=== PATIENT | female | born 1985 | race Caucasian/White ===

== ENCOUNTER 2025-08-26 13:05 | Emergency (ER) | payer OTHER, SELFPAY ==
--- OUTSIDE RECORDS SUMMARY | 2025-08-02 07:58 | XMS_ITS | Encounter Summary ---
Author Organization [facility] Address [address] [place] [address] Care Team Providers Care Sand Cutter Name Role Phone Domingo Arora P.A.-C. Primary Care Provider Encounter Details Date Type Department Care Team (Latest Contact Info) Description 08/02/2025 7:58 AM CDT - 08/02/2025 1:39 PM CDT Hospital Encounter Department of Laboratory Medicine in [place], [place] [address] [place] [phone] Nitin Henao Jr., M.D. [address] [place] [phone] Diabetes Mellitus Gestational (HCC); Hyperlipidemia Discharge Disposition: Home or Self Care Social History Tobacco Use Types Packs/Day Years Used Date Smoking Tobacco: Never Smokeless Tobacco: Never Alcohol Use Standard Drinks/Week Comments Yes 1 (1 standard drink = 0.6 oz pur e alcohol) Only on social occasions Humiliation, Afraid, Rape, and Kick questionnair e Answer Date Recorded Within the last year, have y ou been afraid of your partner or ex-partner? No 06/28/2024 Within the last year, have y ou been humiliated or emotionally abused in other ways by your partner or ex-partner? No Within the last year, have y ou been kicked, hit, slapped, or otherwise physically hurt by your partner or ex-partner? No 06/28/2024 Within the last year, have y ou been raped or forced to have any kind of sexual activity by your partner or ex-partner? No 06/28/2024 Hunger Vital Sign Answer Date Recorded Within the past 12 months, y ou worried that your food would run out before you got the money to buy more. Never true 07/28/20 Within the past 12 months, t he food you bought just didn't last and you didn't have money to get more. Never true 07/28/2025 PRAPARE - Transportation Answer Date Re corded In the past 12 months, has l ack of transportation kept you from medical appointments or from getting medications? No 07/02 In the past 12 months, has l ack of transportation kept you from meetings, work, or from getting things needed for daily living? No 07/28/2025 [facility] Utilities Answer Date Recorded In the past 12 months has th e electric, gas, oil, or water company threatened to shut off services in your home? No 07/28/2025 Depression Answer Date Recor ded PHQ-9 Total Score (max 27) 0 04/03 Housing Stability Answer Date Recorded What is your living situation today? I have a [facility] place to live 07/28/2025 Education Answer Date Recorded What is the highest level of school you have completed or the highest degree you have received? Some college, no degree 12/03/2022 Comments No Sex and Gender Information Value Date Recorded Sex Assigned at Female 09/24/2023 10:54 AM UNDER WATER ASSISTANT Legal Sex Female 5:16 PM UNDER WATER ASSISTANT Gender Identity Female 09/24/2023 10:54 AM UNDER WATER ASSISTANT Sexual Orientation Straight 09/24/2023 10 :54 AM UNDER WATER ASSISTANT Occupation Industry Job Start Date Job End Date Not on file Not on file Not on file Not on file documented as of this encounter Medications at Time of Discharge buPROPion XL (Wellbutrin XL) 150 mg 24 hr tablet Take 1 tablet (150 mg total) by mouth every morning. 90 tablet 3 08/02/2025 naltrexone (Depade) 50 mg tablet Take 1 tablet (50 mg total) by mouth daily. 90 tablet 3 08/02/2025 08/02/2026 documented as of this encounter Plan of Treatment Upcoming Encounters Date Type Department Care Team (Late st Contact Info) Description 09/20/2025 7:30 AM UNDER WATER ASSISTANT Office Visit Department of Family Medicine, [facility], in [place], [place] [address] [facility] [place] [phone] Dominog Arora P.A.-C. [address] [place] [phone] 11/06/2025 10:15 AM UNDER WATER ASSISTANT Telemedicine Department of Sleep Medicine in [place], [place] [address] [place] [phone] Cinthya Lawler APRN, C.N.P., D.N.P., M.S.N. [address] [place] [phone] documented as of this encounter Procedures Procedure Name Priority Date/Time Associated Diagnosis Comments LIPID PANEL, S Routine 08/02/2025 8:13 AM CDT Hyperlipidemia 2 HR GLUCOSE RICHARD Routine 08/02/2025 8:13 AM CDT Diabetes Mellitus Gestational (HCC) documented in this encounter Results * (ABNORMAL) Lipid Panel (08/02/2025 8:13 AM CDT) Triglycerides 301(H) mg/dL 08/02/2025 11:34 AM CDT OWAT Comment: ----REFERENCE VALUE---- Normal: <150 mg/dL Borderline High: 150-199 mg/dL High: 200-499 mg/dL Very High: > or =500 mg/dL Cholesterol, Total 221(H) mg/dL 2024 11:34 AM CDT OWAT Comment: ----REFERENCE VALUE---- Desirable: < 200 mg/dL Borderline High: 200 - 239 mg/dL High: > or = 240 mg/dL Cholesterol, LDL, Calculated 133(H) mg/dL 08/02/2025 11:34 AM CDT OWAT Comment: ----REFERENCE VALUE---- Desirable: <100 mg/dL Above Desirable: 100-129 mg/dL Borderline High: 130-159 mg/dL High: 160-189 mg/dL Very High: >=190 mg/dL ----ADDITIONAL INFORMATION---- LDL cholesterol calculated using the Stinson/NIH equation. Cholesterol, HDL 34(L) >=50 mg/dL 08/02/20 11:34 AM CDT OWAT Cholesterol, Non-HDL, Calculated 187(H) mg/dL 08/02/2025 11:34 AM CDT OWAT Comment: ----REFERENCE VALUE---- Desirable: <130 mg/dL Above Desirable: 130-159 mg/dL Borderline High: 160-189 mg/dL High: 190-219 mg/dL Very High: > or =220 mg/dL Fasting (8 HR or more) Yes 08/02/2025 8:14 AM CDT OWAT Blood (Blood, Venous) 08/02/2025 8:13 AM CDT 08/02/2025 10:35 AM CDT us Domingo Arora P.A.-C. LAB BLOOD ADD-ON Final Result [facility] [address] [place] [address], [facility] OWAT [facility] [place] [address] [place] [address] * Glucose Tolerance, Two Hour, Non-Gestational (08/02/2025 8:13 AM CDT) Glucose Richard, Fast, Non-Gest, P 100 70 - 100 mg/dL 08/02/2025 11:44 AM CDT OWAT Glucose Richard, 2hr, Non-Gest, P 147 <200 mg/dL 08/02/2025 1:22 PM CDT OWAT Blood (Blood, Venous) 08/02/2025 8:13 AM CDT 08/02/2025 10:33 AM CDT Narrative [facility] - 08/02/2025 1:22 PM CDT Specimen Information: Specimen ID: [id number] Specimen Type: Blood Specimen Collection Start Date: 08/02/2025 8:13 AM Specimen Received Date: 08/02/2025 10:33 AM Specimen ID: [id number] Specimen Type: Blood Specimen Collection Start Date: 08/02/2025 10:16 AM Specimen Received Date: 08/02/2025 1:02 PM Nitin Henao Jr., M.D. LAB BLOOD NON ADD-ON F inal Result [facility] [address] [place] [address], [facility] OWAT [facility] in [place] [address] [place] [address] documented in this encounter Visit Diagnoses Diagnosis Diabetes Mellitus Gestational (HCC) Hyperlipidemia documented in this encounter Additional Health Concerns Assessment Noted Time PHQ-9 Depression Total Score: 0 04/03/20 25 8:00 AM CDT documented as of this encounter Care Teams Sand Cutter Relationship Specialty Start Date End Date Domingo Arora P.A.-C. [address] [place] [phone] PCP - General Family Medicine 11/23/22 documented as of this encounter
--- OUTSIDE RECORDS SUMMARY | 2025-08-02 13:00 | XMS_ITS | Encounter Summary ---
Author Organization [facility] Address [address] [place] [address] Care Team Providers Care Human Performance Technologist Name Role Phone Domingo Arora P.A.-C. Primary Care Provider Reason for Referral * Sleep Medicine (Routine) - Closed Specialty Diagnoses / Procedures Referred By Contac t Referred To Contact Diagnoses Morbid Obesity Body Mass Index 40.0-44.9 Adult (HCC) Snoring Procedures Home sleep apnea test (HSAT) Domingo Arora P.A.-C. [address] [place] [address] Phone: tel: fax: [facility] Referral ID Status Reason Start Date Expiration Date Visits Re quested Visits Authorized [id number] Closed 08/02/2025 11/02/2026 1 1 * Outpatient (Routine) - Authorized Specialty Diagnoses / Procedures Referred By Conttruong t Referred To Contact Family Medicine Domingo Arora P.A.-C. [address] [place] [address] Phone: tel: fax: [facility] Region Referral ID Status Reason Start Date Expiration Date V isits Requested Visits Authorized [id number] Authorized 08/02/2025 02/01/2027 1 1 * Outpatient (Routine) - Authorized Specialty Diagnoses / Procedures Referred By Nely worrell Referred To Contact Nutrition Diagnoses Morbid Obesity Body Mass Index 40.0-44.9 Adult (HCC) Domingo Arora P.A.-C. [address] [place] [address] Phone: tel: fax: [facility] Referral ID Status Reason Start Date Expiration Date V isits Requested Visits Authorized [id number] Authorized 08/02/2025 02/01/2027 1 1 Reason for Visit * Reason Comments Annual Exam Annual, weight loss Encounter Details Date Type Department Care Team (Latest Contact Info) Description 08/02/2025 1:00 PM CDT Comprehensive Visit Department of Family Medicine, [facility], in [place], [place] [address] [place] [address] Domingo Arora P.A.-C. 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 No 07/28/2025 [facility] Utilities Answer Date Recorded In the past 12 months has e electric, gas, oil, or water company threatened to shut off services in your home? No 07/28/2025 Depression Answer Date Recor ded PHQ-9 Total Score (max 27) 0 04/03 Housing Stability Answer Date Recorded What is your living situation today? I have a [facility] place to live 07/28/2025 Education Answer Date Recorded What is the highest level of school you have completed or the highest degree you have received? Some college, no degree 12/03/2022 Comments No Sex and Gender Information Value Date Recorded Sex Assigned at Female 09/24/2023 10:54 AM BUSINESS PRACTICES SUPERVISOR Legal Sex Female 5:16 PM BUSINESS PRACTICES SUPERVISOR Gender Identity Female 09/24/2023 10:54 AM BUSINESS PRACTICES SUPERVISOR Sexual Orientation Straight 09/24/2023 10 :54 AM BUSINESS PRACTICES SUPERVISOR Occupation Industry Job Start Date Job End Date Not on file Not on file Not on file Not on file documented as of this encounter Last Filed Vital Signs Vital Sign Reading Time Taken Comments Blood Pressure 122/83 08/02/2025 12:42 PM CDT Pulse 94 08/02/2025 12:42 PM CDT Temperature 35.7 C (96.3 F) 08/02/2025 12:42 PM CDT Respiratory Rate 20 08/02/2025 12:42 PM CDT Oxygen Saturation - - Inhaled Oxygen Concentration - - Weight 115 kg (252 lb 13.9 oz) 08/02/2025 12:42 PM CDT Height 162.2 cm (5' 3.86) 08/02/2025 12:42 PM C DT Body Mass Index 43.6 08/02/2025 12:42 PM CDT documented in this encounter H&P Notes * Domingo Arora P.A.-C. - 08/02/2025 1:00 PM CDT SUBJECTIVE CHIEF COMPLAINT / REASON FOR VISIT Pilar Barnhart is a 40 y.o. female who presents for evaluation of Annual Exam (Annual, weight loss). HISTORY OF PRESENT ILLNESS Pilar presents today for her yearly history and physical. She has a history of a abnormal Pap smearand had a LEEP procedure done about a year ago. She is due for a Pap smear again. She has been struggling with obesity she says she has gained a significant amount of weight following the delivery ofher child about a year ago. She has a history of hyperlipidemia and blood was drawn prior to this vi sit. She had a 2 hour glucose tolerance test that was normal. She does have a family history of diabetes. She also snores and has for quite some time. She is concerned about sleep apnea due to daytime drowsiness as well. Current Medications[1] Allergies[2] MEDICAL HISTORY Problem List[3] Surgical History[4] Social History[5] Family History[6] OBJECTIVE Vitals: 08/02/25 1242 BP: 122/83 BP Location: Left arm Patient Position: Sitting Cuff Size: Large Pulse: 94 Resp: 20 Temp: (!) 35.7 ??C TempSrc: Temporal Weight: 115 kg Height: 162.2 cm Body mass index is 43.6 kg/m??. PHYSICAL EXAMINATION General: Patient appears in no acute distress. ENT: TMs no erythema. Throat no erythema. Mallampati class three Neck: No lymphadenopathy. No thyroid masses. Heart: Regular rate and rhythm. No murmurs. Lungs: Clear to auscultation. Abdomen: Soft and nontender to palpation. Obese ASSESSMENT / PLAN #1 Neoplasia Cervical Squamous Low Grade Intraepithelial He is going to come back for her Pap smear when I see her back in follow up in about a month #2 Hyperlipidemia She continues to work on her diet and exercise #3 General Medical Examination Adult We had a long discussion about her obesity. We talked about some different treatment options and cutting calories am going to get her in for a nutrition management consult #4 Morbid Obesity Body Mass Index 40.0-44.9 Adult (HCC) We talked about trying a medication she is interested in GLP one but not sure if she wants to do that she would be interested in trying Contrave we talked about the risks and benefits of this but it is not covered by her insurance I am going to give her a prescription for naltrexone 50 mg and have her take 25 mg daily for a week and then increase to 50 mg I will start her on Wellbutrin 150 mg extended release. We talked about risks and benefits. If she has any questions or problems she will letus know otherwise I will see her back in a month #5 Screening Examination Diabetes Mellitus Will check a metabolic panel and a hemoglobin A1c #6 Screening Examination For Thyroid Disorder And a TSH #7 Snoring I did a home sleep apnea study. Domingo Arora P.A.-C. [1] Current Outpatient Medications Medication Sig Dispense Refill buPROPion XL (Wellbutrin XL) 150 mg 24 hr tablet Take 1 tablet (150 mg total) by mouth every morning. 90 tablet 3 naltrexone (Depade) 50 mg tablet Take 1 tablet (50 mg total) by mouth daily. 90 tablet 3 No current facility-administered medications for this visit. [2] No Known Allergies [3] Patient Active Problem List Diagnosis Hyperlipidemia Morbid Obesity Body Mass Index 40.0-44.9 Adult ([facility]) Neoplasia Cervical Squamous Low Grade Intraepithelial [4] Past Surgical History: Procedure Laterality Date TONSILLECTOMY 1989 [5] Social History Tobacco Use Smoking status: Never Smokeless tobacco: Never Vaping Use Vaping status: never used Substance Use Topics Alcohol use: Yes Alcohol/week: 1.0 standard drink of alcohol Types: 1 Standard drinks or equivalent per week Comment: Only on social occasions Drug use: Never [6] Family History Problem Relation Name Age of Onset Hypertension Father Suhail Hyperlipidemia (high cholesterol) Father Suhail Thyroid disease Father Suhail Obesity Father Suhail No Known Problems Daughter Renzo No Known Problems Daughter Portia No Known Problems Daughter Terra Coronary artery disease Paternal Grandmother Melva Hypertension Paternal Grandmother Melva Hyperlipidemia (high cholesterol) Paternal Grandmother Melva Diabetes Paternal Grandmother Melva Obesity Paternal Grandmother Melva Coronary artery disease Paternal Grandfather Yanick Stroke Paternal Grandfather Yanick Hypertension Paternal Grandfather Yanick Hyperlipidemia (high cholesterol) Paternal Grandfather Yanick Obesity Paternal Grandfather Yanick Rectal cancer Father's Sister Anahy Butler Coronary artery disease Father's Sister Windy Butler Obesity Father's Sister Windy Coronary artery disease Father's Brother Larry Butler Coronary artery disease Father's Brother Rudy Butler No Known Problems Half-Brother No Known Problems Half-Brother documented in this encounter Plan of Treatment Upcoming Encounters Date Type Department Care Team (Late st Contact Info) Description 09/20/2025 7:30 AM BUSINESS PRACTICES SUPERVISOR Office Visit Department of Family Medicine, [facility], in [address] [phone] Domingo Arora P.A.-C. [address] [place] [phone] 11/06/2025 10:15 AM BUSINESS PRACTICES SUPERVISOR Telemedicine Department of Sleep Medicine in [place], [place] [address] [place] [phone] Cinthya Lawler APRN, C.N.P., D.N.P., M.S.N. [address] [phone] Scheduled Orders Name Type Priority Associated Diagnoses Orde r Schedule Home sleep apnea test (HSAT) Sleep Center Routine Morbid Obesity Body Mass Index 40.0-44.9 Adult (HCC) Snoring Expected: 08/02/2025, Expires: 11/02/2026 Scheduled Referrals Name Type Priority Associated Diagnoses Order Schedule Nutrition - Weight management medical nutrition therapy overweight/obesity consult (clinic) Outpatient Referral Routine Morbid Obesity Body Mass Index 40.0-44.9 Adult (HCC) Expected: 08/02/2025, Expires: 11/02/2026 Family Medicine office visit (clinic) Outpatient Referral Routine Expected: 09/03/2025, Expires: 11/02/2026 documented as of this encounter Results * CBC with Differential, Blood (08/02/2025 2:00 PM CDT) Hemoglobin 13.6 11.6 - 15.0 g/dL 08/02/2025 3:26 PM CDT OWAT Hematocrit 41.0 35.5 - 44.9 % 08/02/2025 3:26 PM CDT OWAT Erythrocytes 4.98 3.92 - 5.13 x10(12)/L 08/02/2025 3:26 PM CDT OW[facility] MCV 82.3 78.2 - 97.9 fL 08/02/2025 3:26 PM CDT OWAT RBC Distrib Width 14.4 12.2 - 16.1 % 08/02/2025 3:26 PM CDT OWAT Platelet Count 239 157 - 371 x10(9)/L 08/02/2025 3:26 PM CDT OWAT Leukocytes 6.6 3.4 - 9.6 x10(9)/L 08/02/2025 3:26 PM CDT OWAT Neutrophils 3.80 1.56 - 6.45 x10(9)/L 08/02/2025 3:26 PM CDT OWAT Lymphocytes 1.94 0.95 - 3.07 x10(9)/L 08/02/2025 3:26 PM CDT OWAT Monocytes 0.60 0.26 - 0.81 x10(9)/L 08/02/2025 3:26 PM CDT OWAT Eosinophils 0.25 0.03 - 0.48 x10(9)/L 08/02/2025 3:26 PM CDT OWAT Basophils 0.05 0.01 - 0.08 x10(9)/L 08/02/2025 3:26 PM CDT OWAT Blood (Blood, Venous) 08/02/2025 2:00 PM CDT 08/02/2025 2:41 PM CDT Domingo Arora P.A.-C. LAB BLOOD ADD-ON Final Result [facility] [address] [place] [address], [place] OWAT [facility] [place] [address] [place] [address] * (ABNORMAL) Comprehensive Metabolic Panel (08/02/2025 2:00 PM CDT) Potassium, P 4.2 3.6 - 5.2 mmol/L 08/02/2025 6:14 PM CDT OWAT Sodium, P 137 135 - 145 mmol/L 08/02/2025 6:14 PM CDT OWAT Chloride, P 103 98 - 107 mmol/L 08/02/2025 6:14 PM CDT OWAT Bicarbonate, P 21(L) 22 - 29 mmol/L 08/02/2025 6:14 PM CDT OWAT Anion Gap, P 13 7 - 15 08/02/2025 6:14 PM CDT OWAT BUN (Blood Urea Nitrogen), P 13 6 - 21 mg/dL 08/02/2025 6:14 PM CDT OWAT Creatinine 0.67 0.59 - 1.04 mg/dL 08/02/2025 6:14 PM CDT OWAT Estimated GFR (eGFR) >90 >=60 mL/min/BS A 08/02/2025 6:14 PM CDT OWAT Comment: Estimated GFR calculated using the 2020 CKD_EPI creatinine equation. Calcium, Total, P 9.1 8.6 - 10.0 mg/dL 08/02/2025 6:14 PM CDT OWAT Glucose, P 105 70 - 140 mg/dL 08/02/2025 6:14 PM CDT OWAT Protein, Total, P 7.5 6.3 - 7.9 g/dL 08/02/2025 6:14 PM CDT OWAT Albumin, P 4.5 3.5 - 5.0 g/dL 08/02/2025 6:14 PM CDT OWAT Aspartate Aminotransferase (AST), P 21 8 - 43 U/L 08/02/2025 6:14 PM CDT OWAT Alkaline Phosphatase, P 86 35 - 104 U/L 08/02/2025 6:14 PM CDT OWAT Alanine Aminotransferase (ALT), P 30 7 - 45 U/L 08/02/2025 6:14 PM CDT OWAT Bilirubin, Total, P 0.4 0.0 - 1.2 mg/dL 08/02/2025 6:14 PM CDT OWAT Blood (Blood, Venous) 08/02/2025 2:00 PM CDT 08/02/2025 5:51 PM CDT us Domingo Smith.-C. LAB BLOOD ADD-ON Final Result Performing Organization Address City/[facility]/ZIP Co de Phone Number [facility] [address] [address], [facility] [place] [address] [place] [phone] * Hemoglobin A1c (08/02/2025 2:00 PM CDT) Pathologist [facility] Hemoglobin A1c, B 5.6 4.2 - 5.6 % 08/02/2025 3:23 PM CDT OWAT Blood (Blood, Venous) 08/02/2025 2:00 PM CDT 08/02/2025 2:39 PM CDT us Domingo Ramírez.A.-C. LAB BLOOD ADD-ON Final Result Performing Organization Address City/[facility]/ZIP Co de Phone Number [facility] [address] [place] [address], [facility] [place] [address] [place] [phone] * Thyroid Function [place] (08/02/2025 2:00 PM CDT) TSH, Sensitive 1.6 0.3 - 4.2 mIU/L 08/02/2025 6:16 PM CDT OWAT Blood (Blood, Venous) 08/02/2025 2:00 PM CDT 08/02/2025 5:51 PM CDT Domingo Arora P.A.-C. LAB BLOOD ADD-ON Final Result [facility] [address] [place] [address], [place] OW[address] [facility] [place] [address] [place] [address] documented in this encounter Visit Diagnoses Diagnosis Neoplasia Cervical Squamous Low Grade Intraepithelial- Primary Hyperlipidemia General Medical Examination Adult Morbid Obesity Body Mass Index 40.0-44.9 Adult (HCC) Screening Examination Diabetes Mellitus Screening Examination For Thyroid Disorder Snoring documented in this encounter Additional Health Concerns Assessment Noted Time PHQ-9 Depression Total Score: 0 04/03/20 25 8:00 AM CDT documented as of this encounter Care Teams Human Performance Technologist Relationship Specialty Start Date End Date Domingo Arora P.A.-C. [address] [place] [phone] PCP - General Family Medicine 11/23/22 documented as of this encounter
--- OUTSIDE RECORDS SUMMARY | 2025-08-02 13:40 | XMS_ITS | Encounter Summary ---
Author Organization [facility] Address [address] [place] [address] Care Team Providers Care Corrugated Box Machine Operator Name Role Phone Domingo Arora P.A.-C. Primary Care Provider Encounter Details Date Type Department Care Team (Latest Contact Info) Description 08/02/2025 1:40 PM CDT - 08/02/2025 11:59 PM CDT Hospital Encounter Department of Laboratory Medicine in [place], [place] [address] [place] [phone] Domingo Arora P.A.-C. [address] [place] [phone] Hyperlipidemia; Screening Examination Diabetes Mellitus; Screening Examination For Thyroid Disorder Discharge Disposition: Home or Self Care Social [...] things needed for daily living? No 07/28/2025 [facility] Utilities Answer Date Recorded In the past 12 months has th e [employer], gas, oil, or water company threatened to shut off services in your home? No 07/28/2025 Depression Answer Date Recor ded PHQ-9 Total Score (max 27) 0 04/03 Housing Stability Answer Date Recorded What is your living situation today? I have a [facility] place to live 07/28/2025 Education Answer Date Recorded What is the highest level of school you have completed or the highest degree you have received? Some college, no degree 12/03/2022 Comments No Sex and Gender Information Value Date Recorded Sex Assigned at Female 09/24/2023 10:54 AM ASSISTANT SPA DIRECTOR Legal Sex Female 5:16 PM ASSISTANT SPA DIRECTOR Gender Identity Female 09/24/2023 10:54 AM ASSISTANT SPA DIRECTOR Sexual Orientation Straight 09/24/2023 10 :54 AM ASSISTANT SPA DIRECTOR Occupation Industry Job Start Date Job End [...] st Contact Info) Description 09/20/2025 7:30 AM ASSISTANT SPA DIRECTOR Office Visit Department of Family Medicine, [facility], in [place], [place] [address] [facility] [phone] Domingo Arora P.A.-C. 300 [facility] [place] [phone] 11/06/2025 10:15 AM ASSISTANT SPA DIRECTOR Telemedicine Department of Sleep Medicine in [place], [place] [address] [place] [phone] Cinthya Lawler APRN, C.N.P., D.N.P., M.S.N. [address] [place] [phone] documented as of this encounter Procedures Procedure Name Priority Date/Time Associated Diagnosis Comments THYROID FUNCTION CASCADE, S Routine 08/02/2025 2:00 PM CDT Hyperlipidemia Screening Examination Diabetes Mellitus Screening Examination For Thyroid Disorder CBC WITH DIFFERENTIAL, B Routine 08/02/2025 2:00 PM CDT Hyperlipidemia Screening Examination Diabetes Mellitus Screening Examination For Thyroid Disorder HEMOGLOBIN A1C, B Routine 08/02/2025 2:0 0 PM CDT Hyperlipidemia Screening Examination Diabetes Mellitus Screening Examination For Thyroid Disorder COMPREHENSIVE METABOLIC PANEL, S/P Routine 08/02/2025 2:00 PM CDT Hyperlipidemia Screening Examination Diabetes Mellitus Screening Examination For Thyroid Disorder documented in this encounter Results * CBC with Differential, [...] 2:00 PM CDT 08/02/2025 2:41 PM CDT us Domingo Arora P.A.-C. LAB BLOOD ADD-ON Final Result [facility] [address] [place] [address], [facility] OWAT [facility] [place] [address] [place] [address] * (ABNORMAL) Comprehensive Metabolic Panel (08/02/2025 2:00 PM CDT) Pathologist [facility] Potassium, P 4.2 3.6 - 5.2 mmol/L [...] CDT 08/02/2025 5:51 PM CDT us Domingo L Roethler P.A.-C. LAB BLOOD ADD-ON Final Result [facility] [address] [place] [address], [place] OWAT [facility] [place] [address] [place] [address] * Hemoglobin A1c (08/02/2025 2:00 PM CDT) Hemoglobin A1c, B 5.6 4.2 - 5.6 % 08/02/2025 3:23 PM CDT OWAT Blood (Blood, Venous) 08/02/2025 2:00 PM CDT 08/02/2025 2:39 PM CDT us Domingo Arora P.A.-C. LAB BLOOD ADD-ON Final Result Performing Organization Address City/[facility]/ZIP Co de Phone Number [facility] [address] [place] [address], [place] AT [facility] [place] [address] [place] [address] * Thyroid Function [place] (08/02/2025 2:00 PM CDT) TSH, Sensitive 1.6 0.3 - 4.2 mIU/L 08/02/2025 6:16 PM CDT OWAT Blood (Blood, Venous) 08/02/2025 2:00 PM CDT 08/02/2025 5:51 PM CDT us Domingo Arora P.A.-C. LAB BLOOD ADD-ON Final Result [facility] [address] [place] [address], [place] AT [facility] [place] [address] [place] [address] documented in this encounter Visit Diagnoses Diagnosis Hyperlipidemia Screening Examination Diabetes Mellitus Screening Examination For Thyroid Disorder documented in this encounter Additional Health Concerns Assessment Noted Time PHQ-9 Depression Total Score: 0 06/04/20 25 8:00 AM CDT documented as of this encounter Care Teams Corrugated Box Machine Operator Relationship Specialty Start Date End Date Domingo Arora P.A.-C. [address] [facility] [place] [phone] PCP - General Family Medicine 11/23/22 documented as of this encounter
--- OUTSIDE RECORDS SUMMARY | 2025-08-14 13:30 | XMS_ITS | Encounter Summary ---
Author Organization [facility] Address [address] [place] [address] Care Team Providers Care Bonderizer Name Role Phone Domingo Arora P.A.-C. Primary Care Provider Reason for Visit * Outpatient (Routine) - Authorized Specialty Diagnoses / Procedures Referred By Contac t Referred To Contact Nutrition Diagnoses Morbid Obesity Body Mass Index 40.0-44.9 Adult (HCC) Domingo Arora P.A.-CWarren [address] [place] [address] Phone: tel: fax: [facility] Region Referral ID Status Reason Start Date Expiration Date V isits Requested Visits Authorized [id number] Authorized 08/02/2025 02/01/2027 1 1 Encounter Details Date Type Department Care Team (Late st Contact Info) Description 08/14/2025 1:30 PM CDT Telemedicine Department of Nutrition in [place], [place] [address] [place] [phone] Domingo Arora P.AWarren-CWarren [address] [place] [phone] Kiesha Ellison, SHANTELLN, LD [address] [place] [address] Morbid Obesity Body Mass Index 40.0-44.9 Adult (HCC) (Primary Dx) Social History Tobacco Use Types Packs/Day Years [...] money to buy more. Never true 07/28/20 25 Within the past 12 months, t he [...] things needed for daily living? No 07/28/2025 [facility] Utilities Answer Date Recorded In the past 12 months has e [employer], gas, oil, or water [employer] threatened to shut off services in your home? No 07/28/2025 Depression Answer Date Recor ded PHQ-9 Total Score (max 27) 0 04/03 Housing Stability Answer Date Recorded What is your living situation today? I have a [facility] place to live 07/28/2025 Education Answer Date Recorded What is the highest level of school you have completed or the highest degree you have received? Some college, no degree 12/03/2022 Comments No Sex and Gender Information Value Date Recorded Sex Assigned at Female 09/24/2023 10:54 AM BIT TAPPER Legal Sex Female 5:16 PM BIT TAPPER Gender Identity Female 09/24/2023 10:54 AM BIT TAPPER Sexual Orientation Straight 09/24/2023 10 :54 AM BIT TAPPER Occupation Industry Job Start Date Job End Date Not on file Not on file Not on file Not on file documented as of this encounter Progress Notes * Terra, Kiesha Marques, SHANTELLN, LD - 08/14/2025 1:30 PM CDT REASON FOR VISIT: Medical Nutrition Therapy for obesity. Referred by: Domingo Arora P.A.-C. PRESENT FOR VISIT: Patient was seen alone for today's visit. NUTRITION ASSESSMENT: Typical meal pattern/daily food intake: Breakfast: usually skips on week days, if she does eat often a pop tart or granola bar Lunch: usually eats at daycare with the kids- may occasionally bring her own lunch Supper: family meal- often a casserole, grain/starchy heavy with protein. Usually very little vegetables due to family preferences of vegetables. Beverages: water is something she reports she knows she needs to drink more of. Usually has 1 glassof milk with evening meal. Soda- usually later afternoon, one per day, cup coffee in the AM and Kuldeep energy drink in afternoon. 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 = Additional information pertinent to visit: Patient is currently in the Preparation stage of Behavior Change. She states she can't eat many fruits due to her pollen allergy. Potato, pasta and bread are more commonly consumed foods and reports portion sizes are a challenge for her. Desserts are not ahuge appeal to her, she would prefer sour foods. Pilar reports she rarely ever feels full which is a problem and as a child reports she had a fast metabolism and could eat whatever she wanted. Physical Activity: averages 10,000-15,000 steps when working. No structured physical activity Supplements/pertinent medications: per EMR, desires GLP-1 in the future Problem List[1] ANTHROPOMETRICS No weight, video visit WEIGHT HISTORY: Wt Readings from Last 6 Encounters: 08/02/25 115 kg 10/23/24 103 kg 09/18/24 102 kg 08/17/24 101 kg 07/05/24 103 kg 07/02/24 108 kg ESTIMATED NEEDS: not addressed today PERTINENT LABS: not applicable SOCIAL HISTORY: Living arrangement: Lives with family. Learning barriers: none NUTRITION DIAGNOSIS: Other (comment) (Obesity) related to skipping meals, large portion sizes, predicted inadequate fiber intake as evidenced by reported daily intake and activity regimen and desired weight loss NUTRITION INTERVENTION: Interventions: Nutrition education, Nutrition counseling Discussed medical nutrition therapy management of obesity at length including energy balance and portion control, plate method, timing and consistency of meals and snacks, meal and snack examples, behavioral management and goal setting, beverages, and physical activity. Specific goals set with patient; see below. Patient verbalized understanding and agreement of plan and noted no further questions or concerns at this time. Handouts Provided: Sample meal and snack ideas MONITORING AND EVALUATION: Nutrition Indicator Indicator/Desired Outcome: Patient desired weight loss, 10-15% Patient Goal(s): 1. Will work on increasing fiber intake specifically in form of vegetables- can be fresh, canned, or frozen options. 2. Will work on ensuring you are eating 3 meals per day, doesn't need to be large meals, ideally a protein + fiber rich food (see handout for ideas) 3. Will work on drinking 1-2 ounces of water every time you do a repeated task such as going to bathroom or washing your hands then drink 1-2 ounces of water to help increase overall water intake. 4. Will try and do 10-15 minutes of resistance activity every other day at a minimum FOLLOW UP PLAN: 1. Patient is provided with RDN's contact information and encouraged to call or send message via Patient Portal with questions or concerns. 2. Encouraged patient to follow up per patient request. Virtual. Visit completed via Video. Consult conducted via real-time audio/video technology by Kiesha Ellison RDN, LD in [facility] to the patient in Patient's Home. Visit start time: 1:20 PM and end time: 2:04 PM. Total time spent with patient: 44 minutes. [1] Patient Active Problem List Diagnosis Hyperlipidemia Morbid Obesity Body Mass Index 40.0-44.9 Adult (HCC) Neoplasia Cervical Squamous Low Grade Intraepithelial documented in this encounter Plan of Treatment Upcoming Encounters Date Type Department Care Team (Late st Contact Info) Description 09/20/2025 7:30 AM BIT TAPPER Office Visit Department of Family Medicine, [facility], in [place], [place] [address] [place] [phone] Domingo Arora P.A.-C. [address] [place] [phone] 11/06/2025 10:15 AM BIT TAPPER Telemedicine Department of Sleep Medicine in [place], [place] [address] [place] [phone] Cinthya Lawler APRN, C.N.P., D.N.P., M.S.N. [address] [phone] documented as of this encounter Visit Diagnoses Diagnosis Morbid Obesity Body Mass Index 40.0-44.9 Adult (HCC)- Primary documented in this encounter Additional Health Concerns Assessment Noted Time PHQ-9 Depression Total Score: 0 04/03/20 25 8:00 AM CDT documented as of this encounter Care Teams Bonderizer Relationship Specialty Start Date End Date Domingo Arora P.A.-C. [address] [place] [phone] PCP - General Family Medicine 11/23/22 documented as of this encounter
--- OUTSIDE RECORDS SUMMARY | 2025-08-23 07:00 | XMS_ITS | Encounter Summary ---
Author Organization [facility] Address [address] [place] [address] Care Team Providers Care Regrind Mill Operator Name Role Phone Domingo Arora P.A.-C. Primary Care Provider Reason for Referral * Sleep Medicine (Routine) - Closed Specialty Diagnoses / Procedures Referred By Nely worrell Referred To Contact Diagnoses Morbid Obesity Body Mass Index 40.0-44.9 Adult (HCC) Snoring Procedures Home sleep apnea test (HSAT) Domingo Arora P.A.-C. [address] [place] [address] Phone: tel: fax: [facility] Referral ID Status Reason Start Date Expiration Date Visits Re quested Visits Authorized [id number] Closed 08/02/2025 11/02/2026 1 1 Reason for Visit * Sleep Medicine (Routine) - Closed Specialty Diagnoses / Procedures Referred By Nely worrell Referred To Contact Diagnoses Morbid Obesity Body Mass Index 40.0-44.9 Adult (HCC) Snoring Procedures Home sleep apnea test (HSAT) Domingo Arora P.A.-C. [address] [place] [address] Phone: tel: fax: [facility] Region Referral ID Status Reason Start Date Expiration Date Visits Re quested Visits Authorized [id number] Closed 08/02/2025 11/02/2026 1 1 Encounter Details Date Type Department Care Team (Latest Contact Info) Description 08/23/2025 7:00 AM CDT - 08/23/2025 11:59 PM CDT Hospital Encounter Department of Pulmonary Medicine in [place], [place] [address] [place] [address] Domingo Arora P.A.-C. [address] [place] [address] [place] [phone] Morbid Obesity Body Mass Index 40.0-44.9 Adult (HCC); Snoring Discharge Disposition: Home or Self Care Social [...] for daily living? No 07/28/2025 [facility] Utilities Answer Date Recorded In the past 12 months has th e electric, gas, oil, or water company threatened to shut off services in your home? No 07/28/2025 Depression Answer Date Recor ded PHQ-9 Total Score (max 27) 0 04/03 Housing Stability Answer Date Recorded What is your living situation today? I have a [facility] place to live 07/28/2025 Education Answer Date Recorded What is the highest level of school you have completed or the highest degree you have received? Some college, no degree 12/03/2022 Comments No Sex and Gender Information Value Date Recorded Sex Assigned at Female 09/24/2023 10:54 AM PROFESSOR OF EARLY CHILDHOOD EDUCATION Legal Sex Female 5:16 PM PROFESSOR OF EARLY CHILDHOOD EDUCATION Gender Identity Female 09/24/2023 10:54 AM PROFESSOR OF EARLY CHILDHOOD EDUCATION Sexual Orientation Straight 09/24/2023 10 :54 AM PROFESSOR OF EARLY CHILDHOOD EDUCATION Occupation Industry Job Start Date Job End [...] 08/02/2025 08/02/2026 documented as of this encounter Progress Notes * Chaitanya Sheridan, C.P.F.T. - 08/23/2025 7:00 AM CDT Home Sleep Study Watch Pat One has been mailed out [phone] [facility] 6065 Tracking # [id number] documented in this encounter Plan of Treatment Upcoming Encounters Date Type Department Care Team (Late st Contact Info) Description 09/20/2025 7:30 AM PROFESSOR OF EARLY CHILDHOOD EDUCATION Office Visit Department of Family Medicine, [facility], in [place] [address] [place] [address] Domingo Arora P.A.-C. [address] [place] [phone] 11/06/2025 10:15 AM PROFESSOR OF EARLY CHILDHOOD EDUCATION Telemedicine Department of Sleep Medicine in [place], [place] [address] [phone] Cinthya Lawler APRN, C.N.P., D.N.P., M.S.N. [address] [place] [phone] Scheduled Orders Name Type Priority Associated Diagnoses Orde r Schedule Home sleep apnea test (HSAT) Sleep Center Routine Morbid Obesity Body Mass Index 40.0-44.9 Adult (HCC) Snoring Once for 1 Occurrences starting 08/23/2025 until 08/23/2025 documented as of this encounter Visit Diagnoses Diagnosis Morbid Obesity Body Mass Index 40.0-44.9 Adult (HCC) Snoring documented in this encounter Additional Health Concerns Assessment Noted Time PHQ-9 Depression Total Score: 0 04/03/20 25 8:00 AM CDT documented as of this encounter Care Teams Regrind Mill Operator Relationship Specialty Start Date End Date Domingo Arora P.A.-C. [address] [facility] [place] [phone] PCP - General Family Medicine 11/23/22 documented as of this encounter
[2025-08-26] VITALS (43 sets, daily range): BP systolic 108–169; BP diastolic 76–106; PULSE 70–94; RESP 0–41; TEMP 37.1; O2SAT 94–99; BMI 45.7
--- OUTSIDE RECORDS SUMMARY | 2025-08-26 13:08 | XMS_ITS | Clinical Summary ---
Author Organization [facility] Address [address] [place] [address] Care Team Providers Care Microsoft Bi Architect Name Role Phone Domingo Arora P.A.-C. Primary Care Provider Source Comments Patient records contain information from all sites at [facility]. For routine questions regarding patient records, call [phone] during business hours, M-F 8:00 AM - 5:00 PM Central Time. Record requests for emergency care only can be directed to [phone] at any time.[facility] Allergies No known active allergies Medications * This document contains information received from the source organization and may not represent a complete record from that organization. naltrexone (Depade) 50 mg tablet Take 1 tablet (50 mg total) by mouth daily. 90 tablet 3 5 08/02/20 26 Active buPROPion XL (Wellbutrin XL) 150 mg 24 hr tablet Take 1 tablet (150 mg total) by mouth every morning. 90 tablet 3 5 Active ctymwxt-Ka-rtfz -FA 27 mg iron- 1 mg tablet Take 1 tablet by mouth daily. 08/02/20 25 Discontinued cholecalciferol , vitamin D3, (cholecalcifero l) 25 mcg (1,000 Unit) tablet Take 1 tablet (25 mcg total) by mouth daily. 90 tablet 3 4 08/02/20 25 Discontinued NIFEdipine XL (Procardia XL) 60 mg 24 hr tablet Take 1 tablet (60 mg total) by mouth daily. 90 tablet 1 4 08/02/20 25 Discontinued Active Problems Patient Care Coordination No te Formatting of this note migh t be different from the original. First trimester OB education completed. Pre-reg completed at [facility]. 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 Neg endocervix. Repeat Pap 1 year. Morbid Obesity Body Mass Index 40.0-44.9 Adult 0 12/27/2023 Hyperlipidemia 12/29/2022 Resolved Problems Problem Noted Date Diagnosed Date Resolved Date Preeclampsia Personal History Not 08/17/2024 08/02/2025 Pap Smear Examination 08/17/20242023 Care And Lactating 06/30/2024 10/23/2024 Delivery Vaginal Normal Spontaneous 06/30/2024 10/23/2024 Overview (07/01/2024): Ms. Barnhart is a 39 y.o. @ 33w4d dated by 7 week ultrasound who presented as a transfer for preeclampsia with severe features based upon sustained severe range blood pressure requiring short-acting antihypertensive treatment at [facility]. complicated by advanced maternal age, elevated 1 hr GTT, mood disorder. Her 2 most recent pregnancies have also been affected by preeclampsia with severe features requiring deliveries at 35 weeks gestation. Prior to transfer, she received her 1st dose of betamethasone and was given magnesium bolus and infusion. On admission, she denied headache, vision changes, chest pain, dyspnea, right upper quadrant epigastric pain. HELLP labs were obtained on admission and found to be within normal limits. Urine protein to creatinine ratio was obtained and 0.3. The patient was monitored for a period of time on labor and delivery with a category 1 heart rate tracing and mild range blood pressures. After this point, she was able to transfer to antepartum for ongoing inpatient observation until anticipated induction of labor at 34 weeks. The patient underwent induction of labor at 34 weeks. Her labor course was induced with vaginal cytotec and a cook catheter and augmented with artificial rupture of membranes and IV pitocin, utilizing epidural anesthesia for pain management. Complications of labor included nothing -- it was uncomplicated. She had a , delivering a liveborn female with weight of 2.15 kg. Gestational age: 34w0d. occurred: :58 PM Perineal lacerations or episiotomy: Intact Lacerations were repaired with: none -- no repair needed Contraceptive methods administered during the delivery: None Impaired Glucose Tolerance 06/28/2024 0 07/01/2024 Preeclampsia Severe 06/27/2024 10/23/2024 Elevated Glucose Tolerance Test 06/12/2024 08/02/2025 Overview (06/26/2024): 1 hour GDM screen 140 BS monitoring 06/26/2024: Fastings have been under 95 with none over 100. Highest post prandials tend to be at lunch in the 120s to 130s. Discussed limiting carbs at diet and a quick way to do that is to make sure she does not drink calories and does not eat process flour or sugar. Counseling Sterilization 01/26/2024 Overview (01/26/2024): Discussed options. Wants salpingectomy if C/S, otherwise at 8 weeks pp. Commercial insurance. Supervision Of Elderly Multi Third Trimester 12/27/2023 10/23/2024 Overview (06/26/2024): Thin Prep Pap 12/13/2023 = LGSIL with negative HPV (repeat 1 year) Final TAYO by U/S today = 08/11/2024 NIPS 01/26/24 Baby Asa 2nd trimester Anatomy us in [place], declines level 2 if NIPS normal. 03/20= 20+! 06/14 US 55% growth, nl but suboptimal 3 vessel and RVOT cardiac views. Glucola test 140, begin testing. Tdap given 05/22/24 Carrier testing negative. BPP and visits along with appropriate growth ultrasounds ordered for the rest of on 06/26/2024. With Personal Hist ory Preeclampsia Previous 12/27/2023 10/23/2024 Overview (04/11/2024): - aspirin [address] tablet; Take 1 tablet (81 mg total) by mouth daily starting at 14 weeks Obesity Body Mass Index 30-39.9 Adult 12/13/2021 08/02/2025 Atypical Squamous Cells Unde termined Significance Cervix 12/05/2020 10/04/2024 Overview (12/09/2022): 12/2020 ASCUS/HPV negative. Plan: Pap/HPV due 12/2023 Encounters * This document contains information received from the source organization and may not represent a complete record from that organization. Date Type Department Care Team Description 08/23/2025 7:00 AM CDT - 08/23/2025 11:59 PM CDT Hospital Encounter Department of Pulmonary Medicine in [place], [place] [address] [place] [id number] Domingo Arora, P.A.-C. Morbid Obesity Body Mass Index 40.0-44.9 Adult (HCC); Snoring Discharge Disposition: Home or Self Care 08/14/2025 1:30 PM CDT Telemedicine Department of Nutrition in [place], [place] [address], [place] [id number] Domingo Arora, P.A.-C. Kiesha Ellison, SHANTELLN, LD Morbid Obesity Body Mass Index 40.0-44.9 Adult (HCC) (Primary Dx) 08/05/2025 Results Follow-Up Department of Family Medicine, [facility], in [place], [place] [address] [place] [address] Domingo Arora, P.A.-C. Thyroid Function [place], Hemoglobin A1c, Comprehensive Metabolic Panel, CBC with Differential, Blood 08/02/2025 1:40 PM CDT - 08/02/2025 11:59 PM CDT Hospital Encounter Department of Laboratory Medicine in [place], [place] [address] [place] [address] Domingo Arora P.A.-CWarren Hyperlipidemia; Screening Examination Diabetes Mellitus; Screening Examination For Thyroid Disorder Discharge Disposition: Home or Self Care 08/02/2025 1:00 PM CDT Comprehensive Visit Department of Family Medicine, [facility], in [address] [address] Domingo Arora P.A.-CWarren Neoplasia Cervical Squamous Low Grade Intraepithelial (Primary Dx); Hyperlipidemia; General Medical Examination Adult; Morbid Obesity Body Mass Index 40.0-44.9 Adult (HCC); Screening Examination Diabetes Mellitus; Screening Examination For Thyroid Disorder; Snoring 08/02/2025 7:58 AM CDT - 08/02/2025 1:39 PM CDT Hospital Encounter Department of Laboratory Medicine in [address] [address] Nitin Henao Jr., M.D. Diabetes Mellitus Gestational (HCC); Hyperlipidemia Discharge Disposition: Home or Self Care 07/03/2025 Orders Only [facility] Domingo Arora P.AWarren-CWarren Hyperlipidemia from Last 3 Months Immunizations Immunization Administration Dates Next Due 4vHPV (discontinued) 10/16/2010,11/10/2007 DTaP (Infanrix, Tripedia) 02/03/1989,09/17/1988, 1987 H1N1 Inj 09/08/2009 HepA Adult 12/05/2020,10/16/2010 HepB Adult 12/05/2020,10/22/2002,11/15/2001 HepB Pediatric/Adolescent 10/22/2003 Influenza TIV (IM) 08/07/2012,10/16/2010 Influenza, Seasonal, Injectable 08/07/2012,10/16 MMR 02/17/1999,09/17/1988 OPV, Trivalent 02/03/1989,09/17/1988,1987 Td (Adult), adsorbed 02/17/1999 Tdap 05/22/2024,09/24/2016,07/06/2012 influenza vaccine quad (FLUZ ONE/FLUARIX) (6 months and older)(PF) 12/05/2020,08/18/2017,07/20/2016 Family History Medical History Relation Name Comments No Known Problems Daughter 1 Renzo No Known Problems Daughter 2 Portia No Known Problems Daughter 3 Terra Hyperlipidemia (high cholesterol) Father Suhail Hypertension Father Suhail Obesity Father Suhail Thyroid disease Father Suhail Coronary artery disease Father's Brother 1 Larry Butler Coronary artery disease Father's Brother 2 Rudy Wol f Rectal cancer Father's Sister 1 Anahy Butler Coronary artery disease Father's Sister 2 Windy Butler Obesity Father's Sister 3 Windy No Known Problems Half-Brother 1 No Known Problems Half-Brother 2 Coronary artery disease Paternal Grandfather Yanick Hyperlipidemia (high cholesterol) Paternal Grandfather Yanick Hypertension Paternal Grandfather Yanick Obesity Paternal Grandfather Yanick Stroke Paternal Grandfather Yanick Coronary artery disease Paternal Grandmother Melva Diabetes Paternal Grandmother Melva Hyperlipidemia (high cholesterol) Paternal Grandmother Melva Hypertension Paternal Grandmother Melva Obesity Paternal Grandmother Melva Relation Name Status Comments Daughter 1 Renzo Alive Daughter 2 Portia Alive Daughter 3 Terra Alive Father Suhail Alive Father's Brother 1 Larry Butler Father's Brother 2 Rudy Butler Father's Sister 1 Anahy Butler Father's Sister 2 Windy Butler Father's Sister 3 Windy Half-Brother 1 Alive Half-Brother 2 Alive Maternal Grandfather Maternal Grandmother Mother Alive Paternal Grandfather Yanick Paternal Grandmother Melva Social History Tobacco Use Types Packs/Day Years Used Date Smoking Tobacco: Never Smokeless Tobacco: Never Tobacco Cessation:Counseling Given: Not Answered Alcohol Use Standard Drinks/Week Comments Yes 1 [...] things needed for daily living? No 07/28/2025 [facility] Utilities Answer Date Recorded In the past 12 months has th e electric, gas, oil, or water company threatened to shut off services in your home? No 07/28/2025 Depression Answer Date Recor ded PHQ-9 Total Score (max 27) 0 04/03 Housing Stability Answer Date Recorded What is your living situation today? [facility] to [facility] 07/28/2025 Education Answer Date Recorded What is the highest level of school you have completed or the highest degree you have received? Some college, no degree 12/03/2022 Comments No Sex and Gender Information Value Date Recorded Sex Assigned at Female 09/24/2023 10:54 AM PROFESSOR OF RHETORIC Legal Sex Female 5:16 PM PROFESSOR OF RHETORIC Gender Identity Female 09/24/2023 10:54 AM PROFESSOR OF RHETORIC Sexual Orientation Straight 09/24/2023 10 :54 AM PROFESSOR OF RHETORIC Occupation Industry Job Start Date Job End Date Not on file Not on file Not on file Not on file Last Filed Vital Signs Vital Sign Reading Time Taken Comments Blood Pressure 122/83 08/02/2025 12:42 PM CDT Pulse 94 08/02/2025 12:42 PM CDT Temperature 35.7 C (96.3 F) 08/02/2025 12:42 PM CDT Respiratory Rate 20 08/02/2025 12:42 PM CDT Oxygen Saturation 99% 08/17/2024 8:50 AM CDT Inhaled Oxygen Concentration - - Weight 115 kg (252 lb 13.9 oz) 08/02/2025 12:42 PM CDT Height 162.2 cm (5' 3.86) 08/02/2025 12:42 PM C DT Body Mass Index 43.6 08/02/2025 12:42 PM CDT Plan of Treatment Upcoming Encounters Date Type Department Care Team (Late st Contact Info) Description 09/20/2025 7:30 AM PROFESSOR OF RHETORIC Office Visit Department of Family Medicine, [facility], in [place], [place] [address] [place] [phone] Domingo Arora P.A.-C. [address] [place] [address] 11/06/2025 10:15 AM PROFESSOR OF RHETORIC Telemedicine Department of Sleep Medicine in [place], [place] [address] [place] [address], [place] [address] Cinthya Lawler APRN, C.N.P., D.N.P., M.S.N. [address] [place] [address] Health Maintenance Due Date Last Done Comments IPV Vaccines (4 of 4 - 4-dose series) 1991 02/03/1989, 09/17/1988, 1987 HPV Vaccines (3 - 3-dose series) 01/08/2011 10/16/2010, 11/10/2007 COVID-19 Vaccine ( season) 2025 Influenza Vaccine (#1) 2025 , 08/18/2017, 07/20/2016, Additional history exists Fasting Glucose for Diabetes Screening 08/02/2026 08/02/2025, 08/02/2025, 07/01/2024, Additional history exists Lipid (Cholesterol) Screening 08/02/2026 08/02/2025, 12/13/2022 Cervical/Vaginal Cancer Screening 08/17/2029 08/17/2024, 08/17/2024, 12/13/2023, Additional history exists DTaP,Tdap,and Td Vaccines (8 - Td or Tdap) 05/22/2034 05/22/2024, 09/24/2016, 07/06/2012, Additional history exists Hepatitis A Vaccines Completed 12/05/2020, 10/16/20 10 Hepatitis B Vaccines Completed 12/05/2020, 10/22/2003, 10/22/2002, Additional history exists HIV Screening Completed 12/27/2023 Hepatitis C Screening Completed 12/27/2023 Depression Screening (Annual PHQ-2) Completed 08/02/2025, 07/28/2025 Pneumococcal vaccine (0-49 years) Aged Out No longer eligible based on patient's age to complete this topic Procedures Procedure Name Priority Date/Time Associated Diagnosis Comments CBC WITH DIFFERENTIAL, B Routine 08/02/2025 2:00 PM CDT Hyperlipidemia Screening Examination Diabetes Mellitus Screening Examination For Thyroid Disorder COMPREHENSIVE METABOLIC PANEL, S/P Routine 08/02/2025 2:00 PM CDT Hyperlipidemia Screening Examination Diabetes Mellitus Screening Examination For Thyroid Disorder HEMOGLOBIN A1C, B Routine 08/02/2025 2:0 0 PM CDT Hyperlipidemia Screening Examination Diabetes Mellitus Screening Examination For Thyroid Disorder THYROID FUNCTION CASCADE, S Routine 08/02/2025 2:00 PM CDT Hyperlipidemia Screening Examination Diabetes Mellitus Screening Examination For Thyroid Disorder LIPID PANEL, S Routine 08/02/2025 8:13 AM CDT Hyperlipidemia 2 HR GLUCOSE ESTEFANI Routine 08/02/2025 8:13 AM CDT Diabetes Mellitus Gestational (HCC) HPV WITH GENOTYPING, PCR, THINPREP Routine 08/17/2024 9:37 AM CDT HCV AB SCRN , S Routine 12/27/2023 9:30 AM PROFESSOR OF RHETORIC Examination Test With Positive Result (HCC) HIV-1/-2 AG AND AB SCRN, PLASMA Routine 12/27/2023 9:30 AM PROFESSOR OF RHETORIC Examination Test With Positive Result (HCC) from Last 3 Months or Most Recently Relevant to Health Maintenance Results * Thyroid Function [place] (08/02/2025 2:00 PM CDT) Pathologist [facility] TSH, Sensitive 1.6 0.3 - 4.2 mIU/L 08/02/2025 6:16 PM CDT OWAT Blood (Blood, Venous) 08/02/2025 2:00 PM CDT 08/02/2025 5:51 PM CDT us Domingo Arora P.A.-C. LAB BLOOD ADD-ON Final Result [facility] [address] [place] [address], [facility] in [place] [address] [place] [address] * CBC with Differential, Blood (08/02/2025 2:00 PM CDT) Pathologist [facility] Hemoglobin 13.6 11.6 - 15.0 g/dL 08/02/2025 [...] PM CDT 08/02/2025 2:41 PM CDT Domingo Fajardo-C. LAB BLOOD ADD-ON Final Result Performing Organization Address [facility]/ZIP Co de Phone Number [facility] [address], [place] [address], [facility] in [place] [address] [place] [address] * Hemoglobin A1c (08/02/2025 2:00 PM CDT) Hemoglobin A1c, B 5.6 4.2 - 5.6 % 08/02/2025 3:23 PM CDT OWAT Blood (Blood, Venous) 08/02/2025 2:00 PM CDT 08/02/2025 2:39 PM CDT Domingo PerryA.-C. LAB BLOOD ADD-ON Final Result Performing Organization Address City/[facility]/ZIP Co de Phone Number [facility] [address] [place] [address], [facility] in [place] [address] [place] [address] * (ABNORMAL) Comprehensive Metabolic Panel (08/02/2025 2:00 [...] Domingo Smith.-C. LAB BLOOD ADD-ON Final Result [facility] [address] [place] [address], [place] [facility] in [place] [address] [place] [address] * (ABNORMAL) Lipid Panel (08/02/2025 8:13 AM [...] BLOOD ADD-ON Final Result Performing Organization Address City/[facility] Co de Phone Number [facility] [address] [place] [address], [facility] [place] [address] [place] [address] * Glucose Tolerance, Two Hour, Non-Gestational (08/02/2025 8:13 AM CDT) Glucose Estefani, Fast, Non-Gest, P 100 70 - 100 mg/dL 08/02/2025 11:44 AM CDT OWAT Glucose Estefani, 2hr, Non-Gest, P 147 <200 mg/dL 08/02/2025 1:22 PM CDT OWAT Blood (Blood, Venous) 08/02/2025 8:13 AM CDT 08/02/2025 10:33 AM CDT Narrative [facility] - 08/02/2025 1:22 PM CDT Specimen Information: Specimen ID: [id number] Specimen Type: Blood Specimen Collection Start Date: 08/02/2025 8:13 AM Specimen Received Date: 08/02/2025 10:33 AM Specimen ID: [id number] Specimen Type: Blood Specimen Collection Start Date: 08/02/2025 10:16 AM Specimen Received Date: 08/02/2025 1:02 PM us Nitin Henao Jr., M.D. LAB BLOOD NON ADD-ON F inal Result [facility] [address] [place] [address], [facility] in [place] [address] [place] [address] * HPV with Genotyping, PCR, ThinPrep (08/17/2024 9:37 AM CDT) Specimen Source Cervix/Endoc ervix 08/21/2024 2:21 PM CDT [facility] HPV High Risk type 16, PCR Negative Negative 08/21/2024 2:21 PM CDT [facility] HPV High Risk type 18, PCR Negative Negative 08/21/2024 2:21 PM CDT [facility] HPV other High Risk types, PCR Negative Negative 08/21/2024 2:21 PM CDT [facility] Comment: The following Other High Risk HPV types were not detected: 31, 33, 35, 39, 45, 51, 52, 56, 58, 59, 66, and 68 This test was ordered in the context of a [facility] [employer] Cytology case; this result should be interpreted within the context of the GARAGE [employer]OR INST[employer]ER cytology report. ----ADDITIONAL INFORMATION---- Testing was performed using the justyn HPV assay ([employer] This report is intended for use in clinical monitoring and management of patients. It is not intended for use in medical-legal applications. 08/17/2024 9:37 AM CDT 08/17/2024 6:26 PM CDT us Carmen Mao M.D., Ph.D. LAB MICROBIOLOGY - GENER AL ORDERABLES Final Result Performing Organization Address [facility]/ZIP Co de Phone Number [facility] [address] [place] [address] [facility] [address] [place] [address] [place] [address] * Hepatitis C Virus Antibody Screen (12/27/2023 9:30 AM PROFESSOR OF RHETORIC) Pathologist [facility] HCV Ab Scrn , S Negative Negative 12/28/2023 8:15 AM PROFESSOR OF RHETORIC [facility] Comment:Ichuyu-rs-uysrco rat io is <1.00. Blood (Blood, Venous) 12/27/2023 9:30 AM PROFESSOR OF RHETORIC 12/28/2023 6:52 AM PROFESSOR OF RHETORIC us Delfin Macario M.D. LAB MICROBIOLOGY - BLOOD ORD ERABLES Final Result Performing Organization Address City/[facility]/ZIP Co de Phone Number [facility] [address] [place] [address] [facility] [place] [address] [place] [address] * HIV-1/-2 Ag and Ab Scrn, Plasma (12/27/2023 9:30 AM PROFESSOR OF RHETORIC) HIV Ag/Ab Scrn, P Negative Negative 12/28/2023 2:04 PM PROFESSOR OF RHETORIC [facility] Comment: Negative result does not rule out HIV infection. If exposure to HIV infection occurred <14 days ago, contact the laboratory to request addition of HIV-1/HIV-2 RNA detection , Plasma (HPP12). HIV-1 p24 Ag Scrn, P Negative Negative 12/28/2023 2:04 PM PROFESSOR OF RHETORIC [facility] Comment: Negative result does not rule out HIV infection. If exposure to HIV infection occurred <14 days ago, contact the laboratory to request addition of HIV-1/HIV-2 RNA detection , Plasma (HPP12). HIV-1 Ab Scrn, P Negative Negative 12/28/2023 2:04 PM PROFESSOR OF RHETORIC [facility] Comment: Negative result does not rule out HIV infection. If exposure to HIV infection occurred <14 days ago, contact the laboratory to request addition of HIV-1/HIV-2 RNA detection , Plasma (HPP12). HIV-2 Ab Scrn, P Negative Negative 12/28/2023 2:04 PM PROFESSOR OF RHETORIC [facility] Comment: Negative result does not rule out HIV infection. If exposure to HIV infection occurred <14 days ago, contact the laboratory to request addition of HIV-1/HIV-2 RNA detection , Plasma (HPP12). Blood (Blood, Venous) 12/27/2023 9:30 AM PROFESSOR OF RHETORIC 12/28/2023 11:55 AM PROFESSOR OF RHETORIC us Delfin Macario M.D. LAB MICROBIOLOGY - BLOOD ORD ERABLES Final Result [facility] [address] [place] [address], [facility] [address] [address] from Last 3 Months or Most Recently Relevant to Health Maintenance Insurance [id number] [place] [id number] [facility] Advance Directives For more information, please contact: [phone] * Full Code (Latest Code Status on File) Date Activated Date Inactivated Comments 06/30/2024 9:57 PM 07/03/2024 3:08 PM Question Answer Comments Full Code: Not Discussed Due to: Not medically appropriate * Full Code Date Activated Date Inactivated Comments 06/30/2024 7:33 AM 06/30/2024 9:57 PM Question Answer Comments Full Code: Not Discussed Due to: Patient not available * Full Code Date Activated Date Inactivated Comments 06/27/2024 7:35 PM 06/30/2024 7:33 AM Question Answer Comments Full Code: Discussed Care Teams [employer] Bi Architect Relationship Specialty Start Date End Date Domingo Arora P.A.-C. [address] [place], [place] [address] [address] PCP - General Family Medicine 11/23/22
--- OUTSIDE RECORDS SUMMARY | 2025-08-26 13:08 | XMS_ITS | Clinical Summary ---
Author Organization [facility] Address [address] [place] [id number] Care Team Providers Care Hazardous Materials Driver Name Role Phone Domingo Arora Primary Care Provider [phone] Allergies No known active allergies Medications cholecalciferol, Vitamin D3, (Vitamin D-3) 5,000 unit tab tabletIndication s:Vitamin D deficiency Take 1 Tablet (5,000 units) by mouth once weekly. 12 Tablet 3 10/02/2021 Active NIFEdipine ER (ADALAT CC) 60 mg extended-release tablet Take 60 mg by mouth once daily before a meal. Active Active Problems Problem Noted Date Diagnosed Date 33 weeks gestation of 06/27/2024 Preeclampsia, severe, third trimester 06/27/2024 Obesity (BMI 30-39.9) 12/13/[address] 12/19/2020 Overview (12/19/2020): Nexplanon placed in left arm 12/19/20. Due for removal in 3 years-12/19/23. Dianelys Bowden PA-C, Family Medicine.....................12/19/2020 6:06 PM ASCUS of cervix with negative high risk HPV 02/2021 Overview (01/06/2021): 12/2020 ASCUS/HPV negative. Plan: Pap/HPV due 12/2023 ISAIAS (generalized anxiety disorder) 12/07/2019 ALLERGIC RHINITIS 02/20/2007 Resolved Problems Problem Noted Date Diagnosed Date Resolved Date depression 08/22/20172020 Exogenous obesity 08/22/2017 10/01/2021 Other normal , not first 11/07/2016 12/27/2016 Spontaneous vaginal delivery 11/07/2016 12/27/2016 Status post induction of labor 11/07/2016 12/27/2016 Supervision of other normal 06/05/2012 12/24/2012 Overview (11/02/2012): Having a girl - Makayla Garrido Admitted for 24 hour urine and blood pressure monitoring - Mild pre-ecclampsia. 24 hour protein 300, uric acid 7, all other labs normal. On bedrest and Labetolol 100 mg BID. Being seen twice a week. Flu - 08/07/12 TDaP - 07/06/12 Obesity, unspecified 10/16/2010 012 Severe Preeclampsia s/p 12/27/2016 Immunizations Immunization Administration Dates Next Due DTaP 02/03/1989,09/17/1988,1987 Hepatitis A (Adult) 12/05/2020,10/16/2010 Hepatitis B (Adult) 12/05/2020,10/22/2002,2001 Human Papilloma Virus Vaccine 10/16/2010, 008 Influenza A (H1N1), Inactiva david (Age >=3 Years) 09/08/2009 Influenza, IIV3 (Age >=3 years) 08/07/2012,10/16 Influenza, IIV4 12/05/2020,08/18/2017,07/20/2016 MMR 02/17/1999,09/17/1988 Oral Polio Vaccine 02/03/1989,09/17/1988, 987 Td (Age >=7 Years) 02/17/1999 Tdap 09/24/2016,07/06/2012 Family History Medical History Relation Name Comments Thyroid Disease Father hypo Diabetes Mother Heart Disease Paternal Aunt 1 Thyroid Disease Paternal Aunt 2 hypo x2 Heart Disease Paternal Grandfather Hypertension Paternal Grandfather Stroke Paternal Grandfather Diabetes Paternal Grandmother Heart Disease Paternal Grandmother CHF Hypertension Paternal Grandmother Thyroid Disease Paternal Grandmother hypo Relation Name Status Comments Father Mother Paternal Aunt 1 Paternal Aunt 2 Paternal Grandfather Paternal Grandmother Social History Tobacco Use Types Packs/Day Years Used Date Smoking Tobacco: Never Passive Smoke Exposure: Never Smokeless Tobacco: Never Tobacco Cessation:Counseling Given: No Alcohol Use Standard Drinks/Week Comments Yes 0 (1 standard drink = 0.6 oz pur e alcohol) rare PHQ-2 Answer Date Recorded PHQ-2 TOTAL SCORE 0 12/11/2021 Social Connections Answer Date Recorded Frequency of Communication with Friends and Fami ly Not on file 10/31/2021 Financial Resource Strain Answer Date R ecorded Difficulty of Paying Living Expenses Not on file 10/31/2021 Difficulty of Paying Living Expenses Not on file 10/31/2021 Comments No Sex and Gender Information Value Date Recorded Sex Assigned at Not on file Legal Sex Female 5:46 AM TICKET AGENT Gender Identity Not on file Sexual Orientation Not on file 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 Please review and update details. 2016 35w 6d 2.32 kg (5 lb 1.8 oz) VAGINA L MALICK N Livin g 8 9 Last Filed Vital Signs Vital Sign Reading Time Taken Comments Blood Pressure 115/72 09/26/2024 2:00 PM TICKET AGENT Pulse 89 09/26/2024 2:00 PM TICKET AGENT Temperature 36.4 C (97.6 F) 09/26/2024 1:16 PM TICKET AGENT Respiratory Rate 16 09/26/2024 2:00 PM TICKET AGENT Oxygen Saturation 98% 09/26/2024 2:00 PM TICKET AGENT Inhaled Oxygen Concentration - - Weight 102.4 kg (225 lb 11.2 oz) 09/26/2024 9:51 AM TICKET AGENT Height 161 cm (5' 3.39) 09/13/2024 8:00 AM TICKET AGENT Body Mass Index 39.5 09/13/2024 8:00 AM TICKET AGENT Plan of Treatment Health Maintenance Due Date Last Done Comments Hepatitis C screening for age 18-79 2005 HPV series for age 9-45 (3 - 3-dose series) 01/08/2011 10/16/2010, 11/10/2007 BMI (ht and wt on same day) for age 18+ 12/11/2022 12/11/2021, 10/01/2021, 12/05/2020, Additional history exists Depression screening for age 12+ 12/11/2022 12/11/2021, 10/01/2021, 12/05/2020, Additional history exists Influenza Vaccine (#1) 2025 , 08/18/2017, 07/20/2016, Additional history exists Tetanus booster 09/24/2026 09/24/2016, 03/2012, 02/17/1999 Pap test for age 21-65 12/13/2026 4 (Verified in Care Everywhere or Patient Record), 12/05/2020, 12/05/2020, Additional history exists RSV vaccine for adults or (1 - 1-dose 75+ series) 2062 HIV for age 15-65 Completed 05/24/2016, , 02/17/2007 Hepatitis B series for 19+ Completed 12/05, 10/22/2002, 11/15/2001 Pneumococcal series for age 6-49 Aged Out No longer eligible based on patient's age to complete this topic Procedures Procedure Name Priority Date/Time Associated Diagnosis Comments ELECTRIC GOLF CART REPAIRERS THIN PREP PAP SCREEN IMAGED Routine 12/05/2020 3:30 PM TICKET AGENT Screening for malignant neoplasm of cervix ANTI HIV 1/2 Routine 05/24/2016 4:59 PM CDT care, subsequent , first trimester (HC) from Last 3 Months or Most Recently Relevant to Health Maintenance Results * (ABNORMAL) ELECTRIC GOLF CART REPAIRERS THIN PREP PAP SCREEN IMAGED (12/05/2020 3:30 PM TICKET AGENT) Case Report Gynecologic Cytology Report Case: [id number] Authorizing Provider: Dianelys Bowden PA Collected: 12/05/2020 1530 Ordering Location: [facility] Received: 12/05/2020 1557 Clinic First Screen: Erik Forman Pathologist: Maurilio Kam Jr., MD Specimen: ELECTRIC GOLF CART REPAIRERS ThinPrep Vial Screening, Cervical 12/16/2020 11:03 AM TICKET AGENT [facility] INTERPRETATION/ RESULT ATYPICAL SQUAMOUS CELLS OF UNDETERMINED SIGNIFICANCE (ASCUS)(A) (none) 12/16/2020 11:03 AM TICKET AGENT [facility] at 1103 TICKET AGENT ORGANISM(S) Shift in roni suggestive of bacterial vaginosis 12/16/2020 11:03 AM TICKET AGENT [facility] SPECIMEN ADEQUACY Satisfactory for evaluation Endocervical component present 12/16/2020 11:03 AM TICKET AGENT [facility] HPV REQUEST HPV and PAP 12/16/2020 11:03 AM TICKET AGENT [facility] Date of LMP 11/24/20 12/16/2020 11:03 AM TICKET AGENT [facility] Last Pap Date 05/24/16 12/16/2020 11:03 AM TICKET AGENT [facility] Last Pap Result NIL 11:03 AM TICKET AGENT [facility] Abnormal Pap or [place] Bx in last 5 years No 12/16/2020 11:03 AM TICKET AGENT [facility] Menstrual Status Regular Periods 12/16/2020 11:03 AM TICKET AGENT [facility] [place] Bx Done Today No 12/16/2020 11:03 AM TICKET AGENT [facility] Additional Information None given 12/16/2020 11:03 AM TICKET AGENT [facility] Comment: Cytology is screened at [facility] - [address], [place] [address] and [facility] - [address] [place] [address], [place] [address] and [facility] - [address] [place] [address] Interpreted at [facility] - [address], [place] [address] Automated Review Successful 12/16/2020 11:03 AM TICKET AGENT [facility] Comment:Specimen processed s uccessfully by automated tuft machine operator device, ThinPrep Imaging System, [employer] ANCILLARY TESTING ELECTRIC GOLF CART REPAIRERS HPV Ordered, Please see separate report 12/16/2020 11:03 AM TICKET AGENT [facility] Note The pap test is a screening technique, not a diagnostic procedure. It is used primarily to screen for squamous cancers and precursor lesions. Published studies have shown that it is subject to both false negative and false positive results. The pap test should not be used as the sole means to diagnose or exclude pre-malignant and malignant lesions. 12/16/2020 11:03 AM TICKET AGENT [facility] Other (Cervical) Non-Blood / Unknown 12/05/2020 3:30 PM TICKET AGENT 12/05/2020 3:57 PM TICKET AGENT us Dianelys CHRIS PATHOLOGY/CYTOLOGY Final R esult [facility] [address] [place] [address], [place] * ANTI HIV 1/2 (05/24/2016 4:59 PM CDT) HIV-1/HIV-2 ANTIBODY Non-Reacti ve Non-Reacti ve 05/25/2016 3:21 PM CDT [facility] Blood BLOOD SPECIMEN / Unknown Venipuncture / Unknown 05/24/2016 4:59 PM CDT 05/24/2016 4:59 PM CDT Narrative [facility] - 05/25/2016 3:21 PM CDT HIV-1 p24 and HIV-1/HIV-2 Ab not detected us Suhail Oconnor MD SEND OUTS Final Re sult [facility] [address] [place] [address], [place] from Last 3 Months or Most Recently Relevant to Health Maintenance Insurance [facility] [id number] [facility] [place] [id number] [employer] Advance Directives * Full Code (Latest Code Status on File) Date Activated Date Inactivated Comments 09/26/2024 9:05 AM 09/26/2024 4:22 PM Question Answer Comments Code Status Discussion: Reviewed Preferences * Full Code Date Activated Date Inactivated Comments 09/26/2024 9:05 AM 09/26/2024 9:05 AM Question Answer Comments Code Status Discussion: Reviewed Preferences * Full Code Date Activated Date Inactivated Comments 11/07/2016 1:03 PM 11/09/2016 4:04 PM * Full Code Date Activated Date Inactivated Comments 11/06/2016 9:35 PM 11/07/2016 1:03 PM * Full Code Date Activated Date Inactivated Comments 11/06/2016 6:00 PM 11/06/2016 9:35 PM Care Teams Hazardous Materials Driver Relationship Specialty Start Date End Date Domingo Arora PA [address] [place] [address] [place] [phone] PCP - General Physician Clerk [employer] 09/07/24
--- OUTSIDE RECORDS SUMMARY | 2025-08-26 13:09 | XMS_ITS | Encounter Summary ---
Author Organization [facility] Address [address] [place] [address] Care Team Providers Care Carpet Binder Name Role Phone Domingo Arora P.A.-C. Primary Care Provider Encounter Details Date Type Department Care Team (Latest Contact Info) Description 08/05/2025 Results Follow-Up Department of Family Medicine, [facility], in [place], [place] [address] [place] [phone] Domingo Arora P.A.-C. [address] [place] [phone] Thyroid Function [place], Hemoglobin A1c, Comprehensive Metabolic Panel, CBC with Differential, Blood Social History Tobacco Use Types Packs/Day Years [...] things needed for daily living? No 07/28/2025 [facility] Utilities Answer Date Recorded In the past 12 months has th e electric, gas, oil, or water company threatened to shut off services in your home? No 07/28/2025 Depression Answer Date Recor ded PHQ-9 Total Score (max 27) 0 04/03 Housing Stability Answer Date Recorded What is your living situation today? I have a [facility] place to live 07/28/2025 Education Answer Date Recorded What is the highest level of school you have completed or the highest degree you have received? Some college, no degree 12/03/2022 Comments No Sex and Gender Information Value Date Recorded Sex Assigned at Female 09/24/2023 10:54 AM MACHINE CRATER Legal Sex Female 5:16 PM MACHINE CRATER Gender Identity Female 09/24/2023 10:54 AM MACHINE CRATER Sexual Orientation Straight 09/24/2023 10 :54 AM MACHINE CRATER Occupation Industry Job Start Date Job End Date Not on file Not on file Not on file Not on file documented as of this encounter Plan of Treatment Upcoming Encounters Date Type Department Care Team (Late st Contact Info) Description 09/20/2025 7:30 AM MACHINE CRATER Office Visit Department of Family Medicine, [facility], in [place], [place] [address] [place] [phone] Domingo Arora P.A.-C. [address] [place] [phone] 11/06/2025 10:15 AM MACHINE CRATER Telemedicine Department of Sleep Medicine in [place], [place] [address] [phone] Cinthya Lawler APRN, C.N.P., D.N.P., M.S.N. [address] [phone] documented as of this encounter Visit Diagnoses Not on filedocumented in this encounter Additional Health Concerns Assessment Noted Time PHQ-9 Depression Total Score: 0 04/03/20 25 8:00 AM CDT documented as of this encounter Care Teams Carpet Binder Relationship Specialty Start Date End Date Domingo Arora P.A.-C. [address] [place] [phone] PCP - General Family Medicine 11/23/22 documented as of this encounter
--- NOTE | 2025-08-26 16:41 | ED.CHESTPAIN ---
HPI - Chest Pain General Time Seen by Provider: 16:41 <Liliana Montes MD - Last Filed: 08/26/25 20:01> Date Seen: 08/26/25 <Liliana Montes MD - Last Filed: 08/26/25 20:01> Chief Complaint: Chest Pain <Liliana Montes MD - Last Filed: 08/26/25 20:01> Stated Complaint: Chest pain <Liliana Montes MD - Last Filed: 08/26/25 20:01> Time Seen by Provider: 08/26/25 16:11 <Liliana Montes MD - Last Filed: 08/26/25 20:01> Source: patient and RN notes reviewed <Liliana Montes MD - Last Filed: 08/26/25 20:01> Mode of arrival: ambulatory <Liliana Montes MD - Last Filed: 08/26/25 20:01> Limitations: no limitations <Liliana Montes MD - Last Filed: 08/26/25 20:01> History of Present Illness HPI narrative: This 40-year-old female is coming in with left chest pressure. She noted symptoms last night, went to bed. When she woke up this morning, did not really notice any symptoms but an hour later symptoms developed. The been there all day. She did go to work, work center in for evaluation. The pain does radiate into the interscapular area. There is no change with breathing. She states her throat feels funny with that, she can breathe and swallow fine but just feels like something is in her throat. She has had no calf swelling or pain. She is not on any contraceptives, had a tubal ligation before. There is strong family history cardiac disease with multiple members on her dad side of the family and both sets of grandparents having had heart attacks. She is not aware of any blood clots. She herself has never had a blood clot. She notes no associated GI symptoms with this other than her appetite has been decreased today. No reflux symptoms with this. Patient does tell me later that she has had 3 pregnancies with severe preeclampsia, the last about a year ago. She recently did start on Wellbutrin and naltrexone for weight loss. She was not feeling good on the Wellbutrin and noted her blood pressure escalating, she did contact her doctor and they did stop this last week. Reportedly her blood pressure had been good prior to that. <Liliana Montes MD - Last Filed: 08/26/25 20:01> MD complaint: chest heaviness <Liliana Montes MD - Last Filed: 08/26/25 20:01> Related Data Home Medications: Home Medications ?Medication ?Instructions ?Recorded ?Confirmed No Known Home Medications 08/26/25 08/26/25 <Liliana Montes MD - Last Filed: 08/26/25 20:01> Allergies/Adverse Reactions: Allergies Allergy/AdvReac Type Severity Reaction Status Date / Time No Known Drug Allergies Allergy Verified 08/26/25 13:44 <Liliana Montes MD - Last Filed: 08/26/25 20:01> Review of Systems Status of ROS Reports: 6 or more systems reviewed and unremarkable except as noted in History and below <Liliana Montes MD - Last Filed: 08/26/25 20:01> [facility] Social History: Social History Smoking Status: Never smoker Do you use any of these nicotine containing products: None Second hand tobacco smoke exposure: No How often do you have a drink containing alcohol: never AUDIT-C Alcohol total score: 0 Non-prescribed substance use: denies use service: No <Liliana Montes MD - Last Filed: 08/26/25 20:01> Exam Const Vital Signs, click to edit/add: Vital Signs - 24 hr 08/26/25 13:44 08/26/25 16:42 08/26/25 16:45 Temperature 98.8 F Pulse Rate 83 87 Pulse Rate [Right Pulse Oximeter] 94 Respiratory Rate 18 0 L 28 H Blood Pressure Blood Pressure [Right Upper Arm] 169/105 H Pulse Oximetry 96 96 99 Oxygen Delivery Method Room Air 08/26/25 16:46 08/26/25 16:47 08/26/25 17:00 Temperature Pulse Rate 81 89 Pulse Rate [Right Pulse Oximeter] Respiratory Rate 13 33 H Blood Pressure 145/90 H Blood Pressure [Right Upper Arm] Pulse Oximetry 95 99 97 Oxygen Delivery Method 08/26/25 17:02 08/26/25 17:15 08/26/25 17:17 Temperature Pulse Rate 82 85 Pulse Rate [Right Pulse Oximeter] Respiratory Rate 41 H 23 13 Blood Pressure 149/96 H 155/104 H Blood Pressure [Right Upper Arm] Pulse Oximetry 97 96 Oxygen Delivery Method 08/26/25 17:30 08/26/25 17:32 08/26/25 17:45 Temperature Pulse Rate 83 87 81 Pulse Rate [Right Pulse Oximeter] Respiratory Rate 0 L 17 11 L Blood Pressure 142/101 H Blood Pressure [Right Upper Arm] Pulse Oximetry 98 98 97 Oxygen Delivery Method 08/26/25 17:47 08/26/25 18:00 08/26/25 18:02 Temperature Pulse Rate 86 83 81 Pulse Rate [Right Pulse Oximeter] Respiratory Rate 16 15 12 Blood Pressure 148/99 H 152/106 H Blood Pressure [Right Upper Arm] Pulse Oximetry 97 98 98 Oxygen Delivery Method 08/26/25 18:15 08/26/25 18:30 08/26/25 18:35 Temperature Pulse Rate 84 89 Pulse Rate [Right Pulse Oximeter] Respiratory Rate 6 L 16 7 L Blood Pressure 145/102 H Blood Pressure [Right Upper Arm] Pulse Oximetry 98 97 Oxygen Delivery Method 08/26/25 18:45 08/26/25 18:47 08/26/25 18:58 Temperature Pulse Rate 85 81 84 Pulse Rate [Right Pulse Oximeter] Respiratory Rate 12 11 L 9 L Blood Pressure 151/95 H 150/92 H Blood Pressure [Right Upper Arm] Pulse Oximetry 99 98 97 Oxygen Delivery Method 08/26/25 19:00 08/26/25 19:02 Temperature Pulse Rate 70 75 Pulse Rate [Right Pulse Oximeter] Respiratory Rate 8 L 8 L Blood Pressure 140/88 H Blood Pressure [Right Upper Arm] Pulse Oximetry 97 94 Oxygen Delivery Method This 40-year-old female is resting in the bed in exam room 3, she is alert, interactive, no apparent distress. Sclera clear, symmetrical facial function. Speech is normal, no hoarseness, no stridor, able speak in complete sentences. She is able to sit up, lungs are clear, good air entry, wheeze or crackles, no tachypnea, no accessory muscle use. CV regular rate and rhythm, no murmur, normal S1-S2, S3-S4. Abdomen is obese but soft, nontender, no rebound or guarding, organomegaly. She has no pretibial edema, no calf tenderness, is ambulatory into the ED of her own accord. <Liliana Montes MD - Last Filed: 08/26/25 20:01> Vital Signs - 24 hr 08/26/25 13:44 08/26/25 16:42 08/26/25 16:45 Temperature 98.8 F Pulse Rate 83 87 Pulse Rate [Right Pulse Oximeter] 94 Respiratory Rate 18 0 L 28 H Blood Pressure Blood Pressure [Right Upper Arm] 169/105 H Pulse Oximetry 96 96 99 Oxygen Delivery Method Room Air 08/26/25 16:46 08/26/25 16:47 08/26/25 17:00 Temperature Pulse Rate 81 89 Pulse Rate [Right Pulse Oximeter] Respiratory Rate 13 33 H Blood Pressure 145/90 H Blood Pressure [Right Upper Arm] Pulse Oximetry 95 99 97 Oxygen Delivery Method 08/26/25 17:02 08/26/25 17:15 08/26/25 17:17 Temperature Pulse Rate 82 85 Pulse Rate [Right Pulse Oximeter] Respiratory Rate 41 H 23 13 Blood Pressure 149/96 H 155/104 H Blood Pressure [Right Upper Arm] Pulse Oximetry 97 96 Oxygen Delivery Method 08/26/25 17:30 08/26/25 17:32 08/26/25 17:45 Temperature Pulse Rate 83 87 81 Pulse Rate [Right Pulse Oximeter] Respiratory Rate 0 L 17 11 L Blood Pressure 142/101 H Blood Pressure [Right Upper Arm] Pulse Oximetry 98 98 97 Oxygen Delivery Method 08/26/25 17:47 08/26/25 18:00 08/26/25 18:02 Temperature Pulse Rate 86 83 81 Pulse Rate [Right Pulse Oximeter] Respiratory Rate 16 15 12 Blood Pressure 148/99 H 152/106 H Blood Pressure [Right Upper Arm] Pulse Oximetry 97 98 98 Oxygen Delivery Method 08/26/25 18:15 08/26/25 18:30 08/26/25 18:35 Temperature Pulse Rate 84 89 Pulse Rate [Right Pulse Oximeter] Respiratory Rate 6 L 16 7 L Blood Pressure 145/102 H Blood Pressure [Right Upper Arm] Pulse Oximetry 98 97 Oxygen Delivery Method 08/26/25 18:45 08/26/25 18:47 08/26/25 18:58 Temperature Pulse Rate 85 81 84 Pulse Rate [Right Pulse Oximeter] Respiratory Rate 12 11 L 9 L Blood Pressure 151/95 H 150/92 H Blood Pressure [Right Upper Arm] Pulse Oximetry 99 98 97 Oxygen Delivery Method 08/26/25 19:00 08/26/25 19:02 Temperature Pulse Rate 70 75 Pulse Rate [Right Pulse Oximeter] Respiratory Rate 8 L 8 L Blood Pressure 140/88 H Blood Pressure [Right Upper Arm] Pulse Oximetry 97 94 Oxygen Delivery Method <Dianelys Jaime MD - Last Filed: 08/26/25 21:41> Documenting provider has reviewed patient's vital signs: yes <Liliana Montes MD - Last Filed: 08/26/25 20:01> Course Course ED Course: This patient has had chest discomfort for hours now, she is on cardiac monitoring and pulse oximetry, no arrhythmia or hypoxia noted at this time but will continue to monitor. Her initial EKG is reassuring. She needs a troponin and a solitary troponin should be sufficient to rule out acute myocardial injury. She notes no positional changes with this, doubt pericarditis. She has not been sick or ill with anything, makes pleurisy or myocarditis less likely. We have discussed that if her workup appears normal, would still recommend that she follow-up given her family history and get scheduled for cardiac stress testing. We will do screening D-dimer, if elevated, she is aware that would be necessary to get chest CT PE protocol. She would agree to that. Blood pressure is elevated but at her age of 40, doubt dissection to be as likely as pulmonary embolus. <Liliana Montes MD - Last Filed: 08/26/25 20:01> Reevaluation(s) Time of Reevaluation #1: 18:24 <Liliana Montes MD - Last Filed: 08/26/25 20:01> Reevaluation #1: Patient's troponin I has just come back elevated at 0.37. I have ordered 324 mg aspirin for the patient. She states her pain sometimes comes and goes, difficult to say. We talked what this could mean for her, this could be definite ischemic disease. I am going to start low-dose nitroglycerin drip in her, will talk to Cardiology. She understands we may be starting heparin but I will talk to Cardiology 1st. <Liliana Montes MD - Last Filed: 08/26/25 20:01> Time of Reevaluation #2: 19:33 <Liliana Montes MD - Last Filed: 08/26/25 20:01> Reevaluation #2: Have spoken to Pilar and her , reviewed the plan with Cardiology, went over my conversation with the financial writer. She is not having any discomfort at this time, the low-dose heparin has been started. She has received 1 IV dose of metoprolol, blood pressure is 133/100, will order subsequent dose of metoprolol. We have discussed potential alternative diagnoses coronary dissection. She is currently remaining stable, will maintain plan of transfer to [place] when they have a bed. Her follow-up EKG was normal. Awaiting the follow-up troponin. <Liliana Montes MD - Last Filed: 08/26/25 20:01> Time of Reevaluation #3: 20:00 <Liliana Montes MD - Last Filed: 08/26/25 20:01> Reevaluation #3: Patient's troponin I has come back elevated at 0.62. We are going to talk to Cardiology to let them know this is raising. <Liliana Montes MD - Last Filed: 08/26/25 20:01> Consultations Consultation #1: Have contacted cardiology at [facility] through [facility]. Spoke with Dr. Cárdenas. He agrees with the aspirin, did review with him that low-dose nitroglycerin has been started as there has been difficulty ascertaining whether not patient truly is having pain at any given time. She states it comes and goes. He would recommend metoprolol, IV 5 mg up to 3 doses. He does wonder if this could be a spontaneous coronary dissection. He declines me starting heparin as he states heparin can make these worse. She is young and he would consider spontaneous coronary dissection potentially more likely. He does think she needs CT angio Gram or CT angiography if her troponin continues to rise. We will get approximately a 2 hour troponin and EKG. There may be up to an 8 hour bed delay. We are to update them if her status is changing on EKG or if her troponin significantly rises. Otherwise they accept her on a bed delay. <Liliana Montes MD - Last Filed: 08/26/25 20:01> Time: 18:34 <Liliana Montes MD - Last Filed: 08/26/25 20:01> Vital Signs Vital signs: Initial Vital Signs Temperature 98.8 F 08/26/25 13:44 Temperature Source Temporal Artery Scan 08/26/25 13:44 Pulse Rate 94 08/26/25 13:44 Respiratory Rate 18 08/26/25 13:44 Blood Pressure 169/105 H 08/26/25 13:44 Blood Pressure Mean 126 H 08/26/25 13:44 Blood Pressure Position Sitting 08/26/25 13:44 Pulse Oximetry 96 08/26/25 13:44 Oxygen Delivery Method Room Air 08/26/25 13:44 Vital Signs Temperature 98.8 F 08/26/25 13:44 Pulse Rate 94 08/26/25 13:44 Respiratory Rate 18 08/26/25 13:44 Blood Pressure 169/105 H 08/26/25 13:44 Pulse Oximetry 96 08/26/25 13:44 Oxygen Delivery Method Room Air 08/26/25 13:44 Temperature 98.8 F 08/26/25 13:44 Pulse Rate 75 08/26/25 19:02 Respiratory Rate 8 L 08/26/25 19:02 Blood Pressure 140/88 H 08/26/25 19:02 Pulse Oximetry 94 08/26/25 19:02 Oxygen Delivery Method Room Air 08/26/25 13:44 <Liliana Montes MD - Last Filed: 08/26/25 20:01> Initial Vital Signs Temperature 98.8 F 08/26/25 13:44 Temperature Source Temporal Artery Scan 08/26/25 13:44 Pulse Rate 94 08/26/25 13:44 Respiratory Rate 18 08/26/25 13:44 Blood Pressure 169/105 H 08/26/25 13:44 Blood Pressure Mean 126 H 08/26/25 13:44 Blood Pressure Position Sitting 08/26/25 13:44 Pulse Oximetry 96 08/26/25 13:44 Oxygen Delivery Method Room Air 08/26/25 13:44 Vital Signs Temperature 98.8 F 08/26/25 13:44 Pulse Rate 94 08/26/25 13:44 Respiratory Rate 18 08/26/25 13:44 Blood Pressure 169/105 H 08/26/25 13:44 Pulse Oximetry 96 08/26/25 13:44 Oxygen Delivery Method Room Air 08/26/25 13:44 Temperature 98.8 F 08/26/25 13:44 Pulse Rate 75 08/26/25 19:02 Respiratory Rate 8 L 08/26/25 19:02 Blood Pressure 140/88 H 08/26/25 19:02 Pulse Oximetry 94 08/26/25 19:02 Oxygen Delivery Method Room Air 08/26/25 13:44 <Dianelys Jaime MD - Last Filed: 08/26/25 21:41> Medications Administered Medications: Generic Name Dose Route Start Last Admin Trade Name Freq PRN Reason Stop Dose Admin Nitroglycerin/Dextrose 25,000 mcg in 250 mls @ 3 mls/hr 08/26/25 18:28 08/26/25 20:11 Nitroglycerin/Dextrose IVPB 15 mcg/min .TITRATE PRN 9 mls/hr chest pain Infusion Protocol 5 MCG/MIN Discontinued Medications Generic Name Dose Route Start Last Admin Trade Name Freq PRN Reason Stop Dose Admin Acetaminophen 1,000 mg 08/26/25 19:39 08/26/25 19:53 Acetaminophen 500 Mg Tablet PO 08/26/25 19:40 1,000 mg ONCE ONE Administration Aspirin 324 mg 08/26/25 18:20 08/26/25 18:23 Aspirin 81 Mg Tab.Chew PO 08/26/25 18:21 324 mg ONCE ONE Administration Metoprolol Tartrate 5 mg 08/26/25 18:39 08/26/25 18:55 Metoprolol Tartrate 1 Mg/Ml Inj IVP 08/26/25 18:40 5 mg ONCE ONE Administration Metoprolol Tartrate 5 mg 08/26/25 19:20 08/26/25 19:52 Metoprolol Tartrate 1 Mg/Ml Inj IVP 08/26/25 19:21 5 mg ONCE ONE Administration <Liliana Montes MD - Last Filed: 08/26/25 20:01> Generic Name Dose Route Start Last Admin Trade Name Freq PRN Reason Stop Dose Admin Nitroglycerin/Dextrose 25,000 mcg in 250 mls @ 3 mls/hr 08/26/25 18:28 08/26/25 20:11 Nitroglycerin/Dextrose IVPB 15 mcg/min .TITRATE PRN 9 mls/hr chest pain Infusion Protocol 5 MCG/MIN Discontinued Medications Generic Name Dose Route Start Last Admin Trade Name Freq PRN Reason Stop Dose Admin Acetaminophen 1,000 mg 08/26/25 19:39 08/26/25 19:53 Acetaminophen 500 Mg Tablet PO 08/26/25 19:40 1,000 mg ONCE ONE Administration Aspirin 324 mg 08/26/25 18:20 08/26/25 18:23 Aspirin 81 Mg Tab.Chew PO 08/26/25 18:21 324 mg ONCE ONE Administration Metoprolol Tartrate 5 mg 08/26/25 18:39 08/26/25 18:55 Metoprolol Tartrate 1 Mg/Ml Inj IVP 08/26/25 18:40 5 mg ONCE ONE Administration Metoprolol Tartrate 5 mg 08/26/25 19:20 08/26/25 19:52 Metoprolol Tartrate 1 Mg/Ml Inj IVP 08/26/25 19:21 5 mg ONCE ONE Administration <Dianelys Jaime MD - Last Filed: 08/26/25 21:41> MDM - Chest Pain MDM Narrative Medical decision making narrative: This patient was signed out to me by my colleague Dr. Travis. Patient remains stable in the emergency room with no further complaints. Patient initially noted to be on a potential 8 hour wait but fortunately she is now departing for [place] at 2140 hours. <Dianelys Jaime MD - Last Filed: 08/26/25 21:41> Medical Records Data Attestation: I reviewed the patient's medical records. <Dianelys Jaime MD - Last Filed: 08/26/25 21:41> Lab Data Attestation: I reviewed the patient's lab results. <Liliana Montes MD - Last Filed: 08/26/25 20:01> Labs: Lab Results 08/26/25 08/26/25 Range/Units 17:15 19:23 WBC 5.87 (4.50-11.00) K/uL RBC 5.21 H (4.00-5.20) m/uL Hgb 14.1 (12.0-16.0) gm/dL Hct 42.9 (33.0-51.0) % MCV 82 (80-100) fL MCH 27 (26-34) pg MCHC 33 (32-36) gm/dL RDW Coeff of Gilda 13.6 (11.5-15.5) % Plt Count 238 (140-440) K/uL Neut % (Auto) 61.0 (42.0-72.0) % Lymph % (Auto) 26.9 (20-44) % [place] % (Auto) 8.3 (0.0-11.0) % Eos % (Auto) 2.6 (0.0-7.0) % Baso % (Auto) 0.3 (0.0-3.0) % Neut # (Auto) 3.58 (1.7-7.0) K/uL Lymph # (Auto) 1.58 (0.90-2.90) K/uL [place] # (Auto) 0.50 (0.00-0.90) K/UL Eos # (Auto) 0.15 (0.00-0.50) K/uL Baso # (Auto) 0.02 (0.00-0.30) K/uL Abs Immat Gran (auto) 0.05 (0.00-0.30) K/uL Imm/Tot Granulo (auto) 0.9 % D-Dimer Quant (PE/DVT) < 0.27 (0.00-0.50) ug/ml Sodium 139 (135-149) mmol/L Potassium 4.1 (3.6-5.1) mmol/L Chloride 103 (96-114) mmol/L Carbon Dioxide 24 (20-32) mmol/L Anion Gap 12 (7-15) mEq/L BUN 15 (5-24) mg/dL Creatinine 0.7 (0.5-1.5) mg/dL Estimated Creat Clear 86.18 Estimated GFR 113 ml/min Glucose 112 (60-115) mg/dL Calcium 9.8 (8.4-10.6) mg/dL Total Bilirubin 0.5 (0.1-1.5) mg/dL AST 33 (12-35) U/L ALT 30 (4-35) U/L Alkaline Phosphatase 90 (40-150) U/L Troponin I 0.37 H* 0.62 H* (0.01-0.04) ng/mL C-Reactive Protein < 0.5 L (0.5-1.0) mg/dL NT-Pro-B Natriuret Pep 27 (See Note) pg/mL Total Protein 8.3 (6.0-8.3) g/dL Albumin 4.7 (3.3-5.0) g/dL <Liliana Montes MD - Last Filed: 08/26/25 20:01> Lab Results 08/26/25 08/26/25 Range/Units 17:15 19:23 WBC 5.87 (4.50-11.00) K/uL RBC 5.21 H (4.00-5.20) m/uL Hgb 14.1 (12.0-16.0) gm/dL Hct 42.9 (33.0-51.0) % MCV 82 (80-100) fL MCH 27 (26-34) pg MCHC 33 (32-36) gm/dL RDW Coeff of Gilda 13.6 (11.5-15.5) % Plt Count 238 (140-440) K/uL Neut % (Auto) 61.0 (42.0-72.0) % Lymph % (Auto) 26.9 (20-44) % [place] % (Auto) 8.3 (0.0-11.0) % Eos % (Auto) 2.6 (0.0-7.0) % Baso % (Auto) 0.3 (0.0-3.0) % Neut # (Auto) 3.58 (1.7-7.0) K/uL Lymph # (Auto) 1.58 (0.90-2.90) K/uL [place] # (Auto) 0.50 (0.00-0.90) K/UL Eos # (Auto) 0.15 (0.00-0.50) K/uL Baso # (Auto) 0.02 (0.00-0.30) K/uL Abs Immat Gran (auto) 0.05 (0.00-0.30) K/uL Imm/Tot Granulo (auto) 0.9 % D-Dimer Quant (PE/DVT) < 0.27 (0.00-0.50) ug/ml Sodium 139 (135-149) mmol/L Potassium 4.1 (3.6-5.1) mmol/L Chloride 103 (96-114) mmol/L Carbon Dioxide 24 (20-32) mmol/L Anion Gap 12 (7-15) mEq/L BUN 15 (5-24) mg/dL Creatinine 0.7 (0.5-1.5) mg/dL Estimated Creat Clear 86.18 Estimated GFR 113 ml/min Glucose 112 (60-115) mg/dL Calcium 9.8 (8.4-10.6) mg/dL Total Bilirubin 0.5 (0.1-1.5) mg/dL AST 33 (12-35) U/L ALT 30 (4-35) U/L Alkaline Phosphatase 90 (40-150) U/L Troponin I 0.37 H* 0.62 H* (0.01-0.04) ng/mL C-Reactive Protein < 0.5 L (0.5-1.0) mg/dL NT-Pro-B Natriuret Pep 27 (See Note) pg/mL Total Protein 8.3 (6.0-8.3) g/dL Albumin 4.7 (3.3-5.0) g/dL <Dianelys Jaime MD - Last Filed: 08/26/25 21:41> Imaging Data Chest x-ray: Attestation: I have reviewed the pertinent imaging results. <Liliana Montes MD - Last Filed: 08/26/25 20:01> Radiologist's impression: Patient: PILAR BAKER Facility:?[facility] Patient ID:?[id number] Site Patient ID:?[id number]. Site :?[id number] Study:?XRay-Chest Portable-08/26/2025 4:59:13 PM Ordering Physician:Valencia Ford Final Report: INDICATION: Chest pain. TECHNIQUE: Chest 1 views. COMPARISON: None. FINDINGS: Cardiovascular and mediastinum: Heart size and vasculature are normal in caliber and appearance. Lungs and pleural spaces: Lungs are clear. No sign of infiltrate or mass. No sign of pleural effusion. No pneumothorax. Bones and soft tissues: No significant findings. IMPRESSION: No acute or significant findings. Dictated by Reuben Fontana MD @ 08/26/2025 5:11:03 PM (Electronic Signature) <Liliana Montes MD - Last Filed: 08/26/25 20:01> ECG Data Attestation: I personally reviewed and interpreted this ECG as follows: (Normal sinus rhythm with sinus arrhythmia, 86 beats per minute. No evidence of any ischemia or infarct.) <Liliana Montes MD - Last Filed: 08/26/25 20:01> ECG interpretation date: 08/26/25 <Liliana Montes MD - Last Filed: 08/26/25 20:01> ECG interpretation time: 16:52 <Liliana Montes MD - Last Filed: 08/26/25 20:01> Prior ECG tracings: not available for review <Liliana Montes MD - Last Filed: 08/26/25 20:01> Interpretation: EKG from 7:16 p.m. shows normal sinus rhythm, 73 beats per minute, normal EKG. No evidence of ischemia or infarct. <Liliana Montes MD - Last Filed: 08/26/25 20:01> Critical Care Time Critical Care Time Critical Care Time: Yes Attestation: The patient required my highest level preparedness to intervene emergently and I personally spent this critical care time directly and personally managing the patient. This critical care time included: Obtaining a history; Examining the patient; Pulse oximetry; Ordering and reviewing of studies; Arranging urgent treatment with development of a management plan; Evaluation of patients response to treatment; Frequent reassessment discussions with other providers. This critical care time was performed to assess and manage the high probability of imminent life-threatening deterioration that could result in multiorgan failure. It was exclusive of separate billable procedures and treating other patients and teaching time. <Dianelys Jaime MD - Last Filed: 08/26/25 21:41> Total Critical Care Time in Minutes: 60 <Dianelys Jaime MD - Last Filed: 10/27/25 21:41> Discharge Plan Discharge Clinical Impression: Elevated troponin I level Chest pain Qualifiers: Chest pain type: unspecified Qualified Code(s): R07.9 - Chest pain, unspecified <Liliana Montes MD - Last Filed: 08/26/25 20:01> Patient Disposition: [facility] <Liliana Montes MD - Last Filed: 08/26/25 20:01> Discharge Location: [facility] <Liliana Montes MD - Last Filed: 08/26/25 20:01> Prescriptions: No Action No Known Home Medications <Liliana Montes MD - Last Filed: 08/26/25 20:01> Stand Alone Forms: My[facility] Info Instructions <Liliana Montes MD - Last Filed: 08/26/25 20:01>
--- NOTE | 2025-08-26 16:46 | CRLHL7_ITS ---
For Patients: As a result of the Century Cures Act, medical imaging exams and procedure reports are released immediately into your electronic medical record. You may view this report before your referring provider. If you have questions, please contact your health care provider. INDICATION: Chest pain. TECHNIQUE: Chest 1 views. COMPARISON: None. FINDINGS: Cardiovascular and mediastinum: Heart size and vasculature are normal in caliber and appearance. Lungs and pleural spaces: Lungs are clear. No sign of infiltrate or mass. No sign of pleural effusion. No pneumothorax. Bones and soft tissues: No significant findings. IMPRESSION: No acute or significant findings. Dictated by Reuben Fontana MD @ 08/26/2025 5:11:03 PM (Electronically Signed)
[2025-08-26 17:21] LABS: Hematocrit* 42.9 % (33.0-51.0); Hemoglobin* 14.1 gm/dL (12.0-16.0); Immature Granulocytes Abs Auto 0.05 K/uL (0.00-0.30); Immature Granulocytes Pct Auto 0.9 %; Lymphocytes Absolute Auto 1.58 K/uL (0.90-2.90); Mean Corpuscular HGB Conc 33 gm/dL (32-36); Mean Corpuscular Hemoglobin 27 pg (26-34); Mean Corpuscular Volume 82 fL (80-100); RDW Coefficient of Variation % 13.6 % (11.5-15.5); Red Blood Count* 5.21 m/uL (4.00-5.20); White Blood Count* 5.87 K/uL (4.50-11.00)
[2025-08-26 17:22] LABS: Slide Review Reflex No
[2025-08-26 17:36] LABS: Albumin* 4.7 g/dL (3.3-5.0); Chloride* 103 mmol/L (96-114); Sodium* 139 mmol/L (135-149)
[2025-08-26 17:37] LABS: Potassium* 4.1 mmol/L (3.6-5.1)
[2025-08-26 17:39] LABS: Alanine Aminotransferase* 30 U/L (4-35); Alkaline Phosphatase* 90 U/L (40-150); Anion Gap 12 mEq/L (7-15); Aspartate Amino Transferase* 33 U/L (12-35); Bilirubin Total* 0.5 mg/dL (0.1-1.5); Blood Urea Nitrogen* 15 mg/dL (5-24); Carbon Dioxide* 24 mmol/L (20-32); Creatinine* 0.7 mg/dL (0.5-1.5); Est. Creatinine Clearance* 86.18; Estimated Glomerular Filt Rate 113 ml/min; Total Protein* 8.3 g/dL (6.0-8.3)
[2025-08-26 17:40] LABS: Calcium* 9.8 mg/dL (8.4-10.6); Glucose* 112 mg/dL (60-115)
[2025-08-26 17:49] LABS: D Dimer Quantitative* < 0.27 ug/ml (0.00-0.50)
[2025-08-26 17:56] LABS: NT Pro B Type NatriureticPept* 27 pg/mL (See Note)
[2025-08-26] MEDS: ASPIRIN 81 MG TAB.CHEW 324 MG PO (18:23)
[2025-08-26] MEDS: NITROGLYCERIN/DEXTROSE 25,000 MCG/250 ML BOTTLE 3 MCG IVPB (18:54)
[2025-08-26] MEDS: METOPROLOL TARTRATE 1 MG/ML inj 5 MG IVP ×2 (18:55→19:52)
[2025-08-26] MEDS: ACETAMINOPHEN 500 MG TABLET 1000 MG PO (19:53)
== END 2025-08-26 21:30 | disposition short-term general hospital (02) ==
PROVIDERS: Family Medicine; Emergency Provider Family Medicine
DX: R07.9 Chest pain, unspecified (principal); R79.89 Other specified abnormal findings of blood chemistry
CPT/HCPCS: 36415; 71045; 80053; 83880; 84484; 85025; 85379; 86140; 93005; 94761; 99284; 99291; A0425; A0434; A9270

== ENCOUNTER 2025-08-26 21:33 | Outpatient (CLI) | payer OTHER, SELFPAY | END 2025-08-26 21:34 | disposition home or self-care (01) | LOC: AMB 08-28 10:15 | PROVIDERS: Visit Provider Family Medicine | DX: R07.9 Chest pain, unspecified (principal); R79.89 Other specified abnormal findings of blood chemistry | CPT/HCPCS: A0425; A0434 ==